=== PATIENT | female | born 1950 | race Caucasian/White ===

== ENCOUNTER → 2016-10-13 | Outpatient (CLI) | payer MEDICARE ==
--- NOTE | 2016-10-13 13:02 | US ---
EXAMINATION TYPE: US abdomen limited DATE OF EXAM: 10/13/2016 COMPARISON: NONE CLINICAL HISTORY: R94.5 Elevated liver enzymes. 1 episode of being sick for a week EXAM MEASUREMENTS: Liver Length: 15.8 cm Gallbladder Wall: 0.2 cm CBD: 0.6 cm Right Kidney: 9.8 x 4.3 x 4.0 cm Pancreas: wnl Liver: wnl Gallbladder: multiple stones within fundal portion of the GB, no wall thickening Evidence for sonographic Espinoza's sign: no CBD: wnl Right Kidney: wnl Shadowing mobile gallstones are evident. There is no pericholecystic fluid or abnormal gallbladder wa ll thickening. IMPRESSION: No worrisome intrahepatic mass or intrahepatic ductal dilatation is seen.
== END | disposition home or self-care (01) ==
LOC: RADUSWWP 12:25
PROVIDERS: ATTEND Family Medicine
DX: R94.5 Abnormal results of liver function studies (principal)
CPT/HCPCS: 76705

== ENCOUNTER 2016-11-13 06:25 | Day surgery (SDC) | payer MEDICARE ==
[2016-11-06 10:13] VITALS: BMI 18.8
[~2016-11-13 06:25] MED LIST: DEXAMETHASONE SOD PHOSPHATE 10 MG/ML 1 ML VIAL IV ONE; HEPARIN SODIUM,PORCINE 5,000 UNIT/ML 1 ML VIAL SQ ONE; LACTATED RINGERS 1,000 ML IV SCH; LIDOCAINE 1% 20 ML VIAL (10MG/ML) FOR IV START INTRADERMA PRN; ONDANSETRON 4 MG/2 ML VIAL IVP ONE; SCOPOLAMINE 1.5MG/72HR PATCH TRANSDERM ONE; ceFAZolin 2 GM in SODIUM CHLORIDE 0.9% 100 ML IVPB ONE; fentaNYL (PF) 50 MCG/ML 2 ML AMP IV PRN
[2016-11-13] MEDS ORDERED: BUPIVACAIN-EPI 0.25%-1:200,000 30 ML VIAL SQ ONE (07:24)
--- NOTE | 2016-11-13 08:07 | P.GSHP ---
History of Present Illness H&P Date: 11/13/16 Chief Complaint: Right upper quadrant pain This is a 65-year-old female referred from Dr. De La Garza. Patient presents today for laparoscopic cholecystectomy. She's had complaints of right quadrant pain. Her recent workup has found gallstones. Past Medical History Past Medical History: Hyperlipidemia, Hypertension, Thyroid Disorder Additional Past Medical History / Comment(s): GALLBLADDER DISORDER History of Any Multi-Drug Resistant Organisms: None Reported Past Surgical History: Section, Hysterectomy, Tonsillectomy Additional Past Surgical History / Comment(s): COLONOSCOPY Past Anesthesia/Blood Transfusion Reactions: Postoperative Nausea & Vomiting ( PONV) Smoking Status: Never smoker - Past Family History Mother Family Medical History: No Reported History Medications and Allergies Home Medications Medication Instructions Recorded Confirmed Type Acetaminophen Tab [Tylenol Tab] 500 mg PO BID PRN 11/06/16 11/13/16 History Atenolol [Tenormin] 50 mg PO DAILY 11/06/16 11/13/16 History Levothyroxine Sodium [Levoxyl] 88 mcg PO DAILY 11/06/16 11/13/16 History Allergies Allergy/AdvReac Type Severity Reaction Status Date / Time hydrocodone [From Vicodin] Allergy Rash/Hives Verified 11/13/16 06:37 Surgical - Exam Vital Signs Temp Pulse Resp BP Pulse Ox 97 F L 54 L 16 170/100 97 11/13/16 07:00 11/13/16 07:00 11/13/16 07:00 11/13/16 07:00 11/13/16 07:00 - General well developed, no distress - Eyes PERRL - ENT normal pinna - Neck no masses - Respiratory normal expansion - Cardiovascular Rhythm: regular - Abdomen Abdomen: soft, non tender Assessment and Plan Plan: Chronic cholecystitis Cholelithiasis We will perform laparoscopic cholecystectomy
[2016-11-13] MEDS ORDERED: MIDAZOLAM 2 MG/2 ML VIAL ONE (08:10)
[2016-11-13] MEDS ORDERED: KETOROLAC 30 MG/ML 1 ML VIAL ONE (08:10)
[2016-11-13] MEDS ORDERED: ROCURONIUM BROMIDE 10 MG/ML 10 ML VIAL IV ONE (08:10)
[2016-11-13] MEDS ORDERED: NEOSTIGMINE 1 MG/ML 10 ML VIAL ONE (08:10)
[2016-11-13] MEDS ORDERED: ePHEDrine 50 MG/ML 1 ML AMP ONE (08:10)
[2016-11-13] MEDS ORDERED: LIDOCAINE 1% INJ 10MG/ML (20 ML MDV) ONE (08:10)
[2016-11-13] MEDS ORDERED: fentaNYL (PF) 50 MCG/ML 2 ML AMP ONE (08:10)
[2016-11-13] MEDS ORDERED: PROPOFOL 10 MG/ML 20 ML VIAL IV ONE (08:10)
[2016-11-13] MEDS ORDERED: SUCCINYLCHOLINE CHLORIDE 100 MG/5 ML SYR IV ONE (08:10)
[2016-11-13] MEDS ORDERED: GLYCOPYRROLATE 0.2 MG/ML 2 ML VIAL ONE (08:10)
--- NOTE | 2016-11-13 08:46 | P.OP ---
Date of Procedure: 11/13/16 Preoperative Diagnosis: Cholecystitis Postoperative Diagnosis: Cholecystitis Procedure(s) Performed: Laparoscopic cholecystectomy Implants: Anesthesia: JEFF Surgeon: Jayesh Lazaro Estimated Blood Loss (ml): 5 Pathology: other (gall bladderg) Condition: stable Disposition: PACU Indications for Procedure: Operative Findings: Description of Procedure: The patient was placed on the operating table. The patient received a general endotracheal tube anesthesia. The patients abdomen was prepped and draped in the usual sterile fashion. Through an infraumbilical stab incision, the fascia of the anterior abdominal wall was grasped with a pair of Kochers and then the Veress needle was placed in the peritoneal cavity. Position of the Veress needle was confirmed with positive drop test. The abdomen was then insufflated. After adequate insufflation, the 10 mm trocar was placed in the peritoneal cavity. Following this the laparoscope was placed in the peritoneal cavity. The patient was placed in the head-up, right side up position and then a 5 mm trocar was placed in the right lateral and right subcostal position under direct visualization. A 8 mm trocar was placed in the epigastric position. The gallbladder was grasped in the fundus and infundibulum. Traction on the gallbladder was placed in the lateral and the cephalad positions. The triangle of Calot was visualized.. The cystic duct was bluntly dissected until the union of the cystic duct and common bile duct was seen. The cystic duct was then divided and sealed with the Harmonic scissors. A PDS Endoloop was then placed throughout the cystic duct stump. The cystic artery divided and sealed with the Harmonic scissors. The gallbladder was then removed from the liver bed using Harmonic scissors. The gallbladder was then extracted through the epigastric port site. Operative field was checked for any bleeding spots and Harmonic scissors was used to coagulate the liver bed. The abdomen was irrigated. The trocars were removed. The skin was closed using interrupted 3-0 Vicryl suture. Dermabond dressing were applied. The patient tolerated the procedure well.
[2016-11-13 08:57] VITALS: TEMP 97.3
[2016-11-13 09:34] VITALS: RESP 16
[2016-11-13] MEDS ORDERED: Acetaminophen-Codeine 300-30mg TAB PO ONE (10:02)
[2016-11-13 11:17] VITALS: BP 151/67; PULSE 54
== END 2016-11-13 11:24 | disposition home or self-care (01) ==
LOC: OR 06:25
PROVIDERS: ATTEND Surgery
DX: K80.10 Calculus of gallbladder with chronic cholecystitis without obstruction (principal); K82.8 Other specified diseases of gallbladder; I10 Essential (primary) hypertension; E07.9 Disorder of thyroid, unspecified; Z79.899 Other long term (current) drug therapy; Z88.5 Allergy status to narcotic agent
CPT/HCPCS: 88304; 47562; J2250; J1644; J1100; J2710; J0690; J2405; J2001; J3010; J1885; J0330; J2704

== ENCOUNTER → 2021-08-03 | Outpatient (CLI) | payer MEDICARE ==
--- NOTE | 2021-08-03 17:11 | BD ---
EXAMINATION TYPE: Axial Bone Density DATE OF EXAM: 08/03/2021 COMPARISON: NONE CLINICAL HISTORY: 70 year old Female. ICD-10 CODE: M81.0 AGE RELATED OSTEOPOROSIS Height: 67.5 Weight: 133.7 FRAX RISK QUESTIONS: Alcohol (3 or more units per day): no Family History (Parent hip fracture): no Glucocorticoids (More than 3mos): no (Ex: prednisone, prednisolone, methylprednisolone, dexamethasone, and hydrocortisone). History of Fracture in Adulthood: no Secondary Osteoporosis: 1. Type 1 Diabetes: no 2. Hyperthyroidism: no 3. Menopause before 45: no 4. Malnutrition: no 5. Chronic liver disease: no Rheumatoid Arthritis: no Current Tobacco Use: no RISK FACTORS HISTORY OF: Surgery to Spine/Hip(right/left)/Wrist (right/left): no Family History of Osteoporosis: no Active: yes Diet low in dairy products/other sources of calcium: yes Postmenopausal woman: yes MEDICATIONS: Thyroid Medications: thyroid How Lon years Osteoporosis Medications: fosamax How Lon years Additional Medications: Additional History: EXAM MEASUREMENTS: Bone mineral densitometry was performed using the [employer]. Bone mineral density as measured about the Lumbar spine is: ----- L1-L4(G/cm2): 1.198 T Score Values are as follows: ----- L1: 0.1 ----- L2: 0.0 ----- L3: -0.2 ----- L4: 0.4 ----- L1-L4: 0.1 Bone mineral density has: decreased -7.9 % since study of: 03.27.2011 Bone mineral density about the R hip (g/cm2): 0.754 Bone mineral density about the L hip (g/cm2): 0.732 T Score values are as follows: -----R Neck: -2.0 -----L Neck: -2.2 -----R Total: -2.2 -----L Total: -2.3 Bone mineral density has: decreased -14.0 % since study of: 03.27.2011 FRAX%s: The graph provided illustrates a 12.3% chance for a major osteoporotic fx and a 3.2% chance f or the hips probability for fx in 10 years time. IMPRESSION: Osteopenia (T Score between -2.5 and -1). There is slightly increased risk of fracture and the patient may be considered for treatment. Re-Screen 2-5 years. NOTE: T-SCORE=SD OF THE YOUNG ADULT MEAN.
--- NOTE | 2021-08-05 10:47 | MM ---
Reason for exam: screening (asymptomatic). Last mammogram was performed 7 years and 11 months ago. History: Patient is postmenopausal. Cancelled Left US Needle Biopsy of the left breast, May 12, 2009. Took estrogen for 11 years beginning at age 48. Physical Findings: A clinical breast exam by your physician is recommended on an annual basis and results should be correlated with mammographic findings. MG Screening Mammo w CAD Bilateral CC and MLO view(s) were taken. Prior study comparison: August 26, 2013, bilateral MG diagnostic mammo w CAD [facility]. April 11, 2012, CAD bilateral diagnostic mammogram. October 11, 2011, right diagnostic mammogram w/CAD. March 27, 2011, CAD bilateral diagnostic mammogram. There are scattered fibroglandular densities. There is chronic nodularity bilaterally. Some fluctuating nodularity on the right. 6 month follow up recommended. ASSESSMENT: Probably benign, BI-RAD 3 RECOMMENDATION: Follow-up diagnostic mammogram of the right breast in 6 months.
== END | disposition home or self-care (01) ==
LOC: RADMAMWWP 13:07
PROVIDERS: ATTEND Family Medicine
DX: Z12.31 Encounter for screening mammogram for malignant neoplasm of breast (principal); M85.89 Other specified disorders of bone density and structure, multiple sites; Z78.0 Asymptomatic menopausal state
CPT/HCPCS: 77067; 77080

== ENCOUNTER 2021-10-05 11:27 | Day surgery (SDC) | payer MEDICARE ==
[2021-10-04 13:22] VITALS: BMI 19.5
[~2021-10-05 11:27] MED LIST changes: -DEXAMETHASONE SOD PHOSPHATE 10 MG/ML 1 ML VIAL IV ONE; -HEPARIN SODIUM,PORCINE 5,000 UNIT/ML 1 ML VIAL SQ ONE; +LIDOCAINE 1% (10MG/ML) FOR IV START INTRADERMA PRN; -LIDOCAINE 1% 20 ML VIAL (10MG/ML) FOR IV START INTRADERMA PRN; -ONDANSETRON 4 MG/2 ML VIAL IVP ONE; -SCOPOLAMINE 1.5MG/72HR PATCH TRANSDERM ONE; -ceFAZolin 2 GM in SODIUM CHLORIDE 0.9% 100 ML IVPB ONE; -fentaNYL (PF) 50 MCG/ML 2 ML AMP IV PRN
[2021-10-05 11:58] VITALS: TEMP 98.2
[2021-10-05] MEDS ORDERED: LIDOCAINE 2% INJ 20 MG/ML (2 ML VIAL) ONE (13:04)
[2021-10-05] MEDS ORDERED: PROPOFOL 10 MG/ML 20 ML VIAL IV ONE (13:04)
--- NOTE | 2021-10-05 13:25 | P.PCN ---
Date of Procedure: 10/05/21 Procedure(s) Performed: BRIEF HISTORY: Patient is a 70-year-old pleasant female scheduled for an elective colonoscopy as a part of screening for colorectal neoplasia. Her last colonoscopy was 11 years ago. PROCEDURE PERFORMED: Colonoscopy. PREOPERATIVE DIAGNOSIS: Screening For colon cancer. IV sedation per Anesthesia. PROCEDURE: After informed consent was obtained, the patient, was brought into the endoscopy unit. IV sedation was administered by Anesthesia under continuous monitoring. Digital rectal examination was normal. Initially the Olympus CF-160 flexible video colonoscope was then inserted in the rectum, gradually advanced into the cecum without any difficulty. Careful examination was performed as the scope was gradually being withdrawn. Ileocecal valve and the appendiceal orifice were visualized and appeared normal. Prep was excellent. Mucosa of the cecum, ascending colon, transverse colon, descending colon, sigmoid colon, and rectum appeared normal. Moderate sigmoid diverticulosis Retroflexion was performed in the rectum and no lesions were seen. The patient tolerated the procedure well. IMPRESSION: Normal-appearing colon from rectum to cecum with no evidence of colorectal neoplasia . Sigmoid diverticulosis RECOMMENDATIONS: Findings of this examination were discussed with the patient as well as her family. She was advised to have a repeat screening colonoscopy in 10 years..
[2021-10-05 13:33] VITALS: RESP 16
[2021-10-05 13:46] VITALS: BP 129/79; PULSE 55
== END 2021-10-05 14:07 | disposition home or self-care (01) ==
LOC: ORWHC2ENDO 11:27
PROVIDERS: ATTEND Internal Medicine Gastroenterology
DX: Z12.11 Encounter for screening for malignant neoplasm of colon (principal); K57.30 Diverticulosis of large intestine without perforation or abscess without bleeding; Z88.5 Allergy status to narcotic agent; E03.9 Hypothyroidism, unspecified; I10 Essential (primary) hypertension; E78.5 Hyperlipidemia, unspecified; Z79.899 Other long term (current) drug therapy; Z90.49 Acquired absence of other specified parts of digestive tract; Z90.710 Acquired absence of both cervix and uterus
CPT/HCPCS: J2704; J2001; G0121

== ENCOUNTER → 2022-04-05 | Outpatient (CLI) | payer MEDICARE ==
--- NOTE | 2022-04-05 14:58 | MM ---
Reason for Exam: Follow-up at short interval from prior study. Last screening mammogram was performed 8 month(s) ago. Patient History: Menarche at age 9. First Full-Term at age 19. Right ovary removed at age 43. Hysterectomy at age 43. Postmenopausal. Estrogen for 11 years from age 48 until age 59. 05/12/2009, Cancelled Left US Needle Biopsy on the left side. Risk Values: Bridget 5 year model risk: 1.7%. NCI Lifetime model risk: 4.3%. Prior Study Comparison: 04/11/2012 Bilateral Diagnostic Mammogram, [facility]. 08/26/2013 Bilateral Diagnostic Mammogram, [facility]. 08/03/2021 Bilateral Screening Mammogram, [facility]. Tissue Density: Right: There are scattered fibroglandular densities. Findings: Analyzed By CAD. Pattern appears stable. Benign focal asymmetry in the upper outer right breast. Stable nodular densities in the lower inner right breast. Benign scattered calcifications are present. No suspicious groups of microcalcifications, spiculated or lobular masses, architectural distortion or other secondary signs of malignancy are mammographically apparent. Overall Assessment: Benign, BI-RAD 2 Management: Screening Mammogram of both breasts in 6 months. A negative mammogram report should not preclude additional follow up of suspicious palpable abnormalities. Patient should continue monthly self breast exam. A clinical breast exam by your physician is recommended on an annual basis and results should be correlated with mammographic findings. Electronically signed and approved by: Frank Hodgson D.O. Radiologis
== END | disposition home or self-care (01) ==
LOC: RADMAMWWP 14:23
PROVIDERS: ATTEND Family Medicine
DX: R92.8 Other abnormal and inconclusive findings on diagnostic imaging of breast (principal); Z78.0 Asymptomatic menopausal state; Z90.721 Acquired absence of ovaries, unilateral
CPT/HCPCS: 77065; G0279; 77061

== ENCOUNTER → 2022-11-21 | Outpatient (CLI) | payer MEDICARE ==
--- NOTE | 2022-11-22 07:51 | MM ---
Reason for Exam: Screening (asymptomatic). Last mammogram was performed 1 year(s) and 4 month(s) ago. Patient History: Menarche at age 9. First Full-Term at age 19. Right ovary removed at age 43. Hysterectomy at age 43. Postmenopausal. Estrogen for 11 years from age 48 until age 59. 05/12/2009, Cancelled Left US Needle Biopsy on the left side. Risk Values: Bridget 5 year model risk: 1.7%. NCI Lifetime model risk: 4.3%. Prior Study Comparison: 08/26/2013 Bilateral Diagnostic Mammogram, [facility]. 08/03/2021 Bilateral Screening Mammogram, [facility]. 04/05/2022 Right MG 3D diag mammo w/cad RT, [facility]. Tissue Density: The breast tissue is heterogeneously dense. This may lower the sensitivity of mammography. Findings: Analyzed By CAD. There is no suspicious group of microcalcifications or new suspicious mass in either breast. Benign-appearing round calcifications within both breasts. Stable chronic nodularity within both breasts. Overall Assessment: Benign, BI-RAD 2 Management: Screening Mammogram of both breasts in 1 year. A clinical breast exam by your physician is recommended on an annual basis and results should be correlated with mammographic findings. Note on Bridget scores and lifetime risk: 1. A Bridget score greater than 3% is considered moderate risk. If this is the case, consider specialist referral to assess eligibility for a risk reducing agent. If overall lifetime risk for the development of breast cancer is 20% or higher, the patient may qualify for future screening with alternating mammogram and breast MRI. Electronically signed and approved by: Jose A Padron D.O.
== END | disposition home or self-care (01) ==
LOC: RADMAMWWP 15:04
PROVIDERS: ATTEND Family Medicine
DX: Z12.31 Encounter for screening mammogram for malignant neoplasm of breast (principal); Z78.0 Asymptomatic menopausal state
CPT/HCPCS: 77063; 77067

== ENCOUNTER 2024-04-21 11:45 | Inpatient (IN) | payer MEDICARE ==
--- NOTE | 2024-04-21 12:21 | ED ---
Fall HPI - General Chief Complaint: Fall Stated Complaint: Fall-L ankle injury Time Seen by Provider: 04/21/24 11:52 Source: patient, EMS Mode of arrival: EMS - History of Present Illness Initial Comments: 73-year-old female with history of hypertension presenting to the ER with chief complaint of fall with left ankle injury. Patient states about an hour ago she was walking in her living room and started to feel lightheaded and syncopized, falling backwards onto the carpet. She injured her left ankle during the fall. witnessed the fall and states she did not hit her head. Denies blood thinners. Denies any other injuries from the fall. Denies chest pain, shor tness of breath, headache, abdominal pain. States she has been ill with a viral upper respiratory infection the past couple of days and believes this is why she fell. Also reports she has not eaten as much as usual due to the illness. Denies history of syncope. Denies history of heart issues. - Related Data Home Medications Medication Instructions Recorded Confirmed atenoloL [Tenormin] 50 mg PO DAILY 11/06/16 04/21/24 Atorvastatin [Lipitor] 40 mg PO DAILY 10/04/21 04/21/24 Levothyroxine Sodium [Synthroid] 88 mcg PO DAILY 10/05/21 04/21/24 Calcium(Unknown Dose) 1 tab PO DAILY 04/21/24 04/21/24 Fish Oil(Unknown Dose) 1 cap PO DAILY 04/21/24 04/21/24 Ibandronate Sodium [Boniva] 150 mg PO Q30D 04/21/24 04/21/24 Losartan [Cozaar] 25 mg PO DAILY 04/21/24 04/21/24 Vitamin C(Unknown Dose) 1 tab PO DAILY 04/21/24 04/21/24 Allergies Allergy/AdvReac Type Severity Reaction Status Date / Time hydrocodone [From Vicodin] Allergy Rash/Hives Verified 04/21/24 17:51 Review of Systems ROS Statement: Those systems with pertinent positive or pertinent negative responses have been documented in the HPI. ROS Other: All systems not noted in ROS Statement are negative. Past Medical History Past Medical History: Hyperlipidemia, Hypertension, Thyroid Disorder Additional Past Medical History / Comment(s): GALLBLADDER DISORDER History of Any Multi-Drug Resistant Organisms: None Reported Past Surgical History: Section, Cholecystectomy, Hysterectomy, Tonsillectomy Additional Past Surgical History / Comment(s): COLONOSCOPY. Past Anesthesia/Blood Transfusion Reactions: Postoperative Nausea & Vomiting (PONV) Past Psychological History: No Psychological Hx Reported Smoking Status: Never smoker Past Alcohol Use History: None Reported Past Drug Use History: None Reported - Past Family History Mother Family Medical History: No Reported History General Exam General appearance: alert, in no apparent distress Head exam: Present: atraumatic, normocephalic, normal inspection Eye exam: Present: normal appearance, PERRL, EOMI. Absent: scleral icterus, conjunctival injection, periorbital swelling ENT exam: Present: normal exam, mucous membranes moist Neck exam: Present: normal inspection. Absent: tenderness, meningismus, lymphadenopathy Respiratory exam: Present: normal lung sounds bilaterally. Absent: respiratory distress, wheezes, rales, rhonchi, stridor Cardiovascular Exam: Present: regular rate, normal rhythm, normal heart sounds. Absent: systolic murmur, diastolic murmur, rubs, gallop, clicks GI/Abdominal exam: Present: soft, normal bowel sounds. Absent: distended, tenderness, guarding, rebound, rigid Left Lower Leg exam: Present: normal inspection, full ROM. Absent: tenderness, swelling Ankle exam: Present: tenderness, swelling, deformity. Absent: normal inspection (Visible deformity medial left ankle with large amount of bruising), full ROM Foot/Toe exam: Present: normal inspection, full ROM. Absent: tenderness, swelling Neurovascular tendon exam: Present: no vascular compromise. Absent: pulse deficit, abnormal cap refill, sensory deficit Neurological exam: Present: alert, oriented X3 Psychiatric exam: Present: normal affect, normal mood Skin exam: Present: warm, dry, intact, normal color. Absent: rash Course Vital Signs 04/21/24 11:51 Temperature 98.1 F Pulse Rate 67 Respiratory 18 Rate Blood Pressure 137/76 O2 Sat by Pulse 95 Oximetry Procedures - Orthopedic Splinting/Casting Injury #1 Side: left Lower Extremity Injury Location: ankle Lower Extremity Immobilizer: posterior splint, stirrup splint Additional Comments: Neurovascularly intact status post splint Medical Decision Making - Medical Decision Making Was pt. sent in by a medical professional or institution (, PA, BIOMECHANICAL ENGINEER, urgent care, hospital, or group home...) When possible be specific @ -[No] Did you speak to anyone other than the patient for history (EMS, parent, family, police, friend...)? What history was obtained from this source @ -[No] Did you review nursing and triage notes (agree or disagree)? Why? @ -[I reviewed and agree with nursing and triage notes] Were old charts reviewed (outside hosp., previous admission, EMS record, old EKG, old radiological studies, urgent care reports/EKG's, group home records)? Report findings @ -[No old charts were reviewed] Differential Diagnosis (chest pain, altered mental status, abdominal pain women, abdominal pain men, vaginal bleeding, weakness, fever, dyspnea, syncope, hea dache, dizziness, GI bleed, back pain, seizure, CVA, palpatations, mental health, musculoskeletal)? @ -Differential Syncope: Valvular disease, hypertrophic cardiomyopathy, pulmonary embolism, tamponade, tachycardia, bradycardia, LA, hypovolemia, hemorrhage, dissection, anemia, intracranial hemorrhage, seizure, hypoglycemia, carbon monoxide poisoning, this is not meant to be an all-inclusive list. Differential Musculoskeletal Muscular strain, contusion, ligament sprain, fracture, arthritis, septic arthritis, bursitis, cellulitis, muscle spasm, nerve compression, DVT, arterial occlusion, herpes zoster, electrolyte abnormality, tumor.... This is not meant to be in all inclusive list EKG interpreted by me (3pts min.). @ -[As above] X-rays interpreted by me (1pt min.). @ -X-ray left ankle reveals unstable trimalleoli ankle fractures, displacement of medial malleolus fragment by 7 mm and displacement of oblique distal fibular fragment by 4 mm, chest x-ray, borderline heart size, mild hyperinflation may relate to depth of inspiration or underlying emphysema, no acute cardiopulmonary process CT interpreted by me (1pt min.). @ -CT angio chest no evidence of PE, 6 mm spiculated nodule of right upper lobe U/S interpreted by me (1pt. min.). @ -[None done] What testing was considered but not performed or refused? (CT, X-rays, U/S, labs)? Why? @ -[None] What meds were considered but not given or refused? Why? @ -[None] Did you discuss the management of the patient with other professionals (professionals i.e. , PA, BIOMECHANICAL ENGINEER, lab, RT, psych nurse, nephrology social worker, service greeter, teacher, telecommunications officer, caser up)? Give summary @ -I spoke with Dr. Law who recommends admission for surgical fixation tonight, requesting consultation to [facility] for preop clearance. Dr. Francois agreeable to plan Was smoking cessation discussed for >3mins.? @ -[No] Was critical care preformed (if so, how long)? @ -[No] Were there social determinants of health that impacted care today? How? (Homelessness, low income, unemployed, alcoholism, drug addiction, transportation, low edu. Level, literacy, decrease access to med. care, long-term, rehab)? @ -[No] Was there de-escalation of care discussed even if they declined (Discuss DNR or withdrawal of care, Hospice)? DNR status @ -[No] What co-morbidities impacted this encounter? (DM, HTN, Smoking, COPD, CAD, Cancer, CVA, ARF, Chemo, Hep., AIDS, mental health diagnosis, sleep apnea, morbid obesity)? @ -[None] Was patient admitted / discharged? Hospital course, mention meds given and route, prescriptions, significant lab abnormalities, going to OR and other p ertinent info. @ -Admitted. This is a 73-year-old female presenting for syncopal episode with left ankle injury. Patient admits lightheadedness prior to the fall. Denies chest pain, shortness of breath. X-ray left ankle reveals trimalleolar fracture with displacement of medial malleolus fragment 7 mm and displacement of oblique distal fibular fragment 4 mm. Patient is RSV positive. Lab work remarkable for leukocytosis at 11.2 and elevated D-dimer at 9.76. CT chest angio obtained which is negative for PE. Results discussed with patient. Patient was placed in posterior and stirrup orthopedic splint. I spoke with Dr. Law who recommends admission for surgical fixation tonight as patient has been n.p.o. for the past 2 days. He is requesting consultation to [facility] for preop clearan ce. Dr. Francois agreeable to this plan. Case was discussed with my ED attending Dr. Rice Undiagnosed new problem with uncertain prognosis? @ -[No] Drug Therapy requiring intensive monitoring for toxicity (Heparin, Nitro, Insulin, Cardizem)? @ -[No] Were any procedures done? @ -Orthopedic posterior and stirrup splint Diagnosis/symptom? @ -Left ankle fracture Acute, or Chronic, or Acute on Chronic? @ -Acute Uncomplicated (without systemic symptoms) or Complicated (systemic symptoms)? @ -Complicated Side effects of treatment? @ -[No] Exacerbation, Progression, or Severe Exacerbation? @ -[No] Poses a threat to life or bodily function? How? (Chest pain, USA, LA, pneumonia, PE, COPD, DKA, ARF, appy, cholecystitis, CVA, Diverticulitis, Homicidal, Suicidal, threat to staff... and all critical care pts) @ -Possibly - Lab Data Result diagrams: 04/21/24 12:52 04/21/24 12:52 Lab Results 04/21/24 04/21/24 04/21/24 Range/Units 12:52 12:52 12:52 WBC 11.2 H (3.8-10.6) k/uL RBC 3.99 (3.80-5.40) m/uL Hgb 12.3 (11.4-16.0) gm/dL Hct 38.0 (34.0-46.0) % MCV 95.1 (80.0-100.0) fL MCH 30.8 (25.0-35.0) pg MCHC 32.3 (31.0-37.0) g/dL RDW 11.9 (11.5-15.5) % Plt Count 204 (150-450) k/uL MPV 7.0 Neutrophils % 91 % Lymphocytes % 5 % Monocytes % 3 % Eosinophils % 0 % Basophils % 0 % Neutrophils # 10.2 H (1.3-7.7) k/uL Lymphocytes # 0.6 L (1.0-4.8) k/uL Monocytes # 0.4 (0-1.0) k/uL Eosinophils # 0.0 (0-0.7) k/uL Basophils # 0.0 (0-0.2) k/uL PT (10.0-12.5) sec INR (<1.2) APTT (22.0-30.0) sec D-Dimer 9.76 H (<0.60) mg/L FEU Sodium 133 L (137-145) mmol/L Potassium 3.7 (3.5-5.1) mmol/L Chloride 97 L (98-107) mmol/L Carbon Dioxide 29 (22-30) mmol/L Anion Gap 7 mmol/L BUN 15 (7-17) mg/dL Creatinine 0.61 (0.52-1.04) mg/dL Est GFR (CKD-EPI)AfAm >90 (>60 ml/min/1.73 sqM) Est GFR (CKD-EPI)NonAf 89 (>60 ml/min/1.73 sqM) Glucose 101 H (74-99) mg/dL Plasma Lactic Acid Yefri (0.7-2.0) mmol/L Calcium 8.9 (8.4-10.2) mg/dL Total Bilirubin 1.1 (0.2-1.3) mg/dL AST 39 H (14-36) U/L ALT 39 H (4-34) U/L Alkaline Phosphatase 72 (38-126) U/L Troponin I (0.000-0.034) ng/mL Total Protein 7.0 (6.3-8.2) g/dL Albumin 4.2 (3.5-5.0) g/dL Influenza Type A (PCR) (Not Detectd) Influenza Type B (PCR) (Not Detectd) RSV (PCR) (Not Detectd) SARS-CoV-2 (PCR) (Not Detectd) 04/21/24 04/21/24 04/21/24 Range/Units 12:52 12:52 12:52 WBC (3.8-10.6) k/uL RBC (3.80-5.40) m/uL Hgb (11.4-16.0) gm/dL Hct (34.0-46.0) % MCV (80.0-100.0) fL MCH (25.0-35.0) pg MCHC (31.0-37.0) g/dL RDW (11.5-15.5) % Plt Count (150-450) k/uL MPV Neutrophils % % Lymphocytes % % Monocytes % % Eosinophils % % Basophils % % Neutrophils # (1.3-7.7) k/uL Lymphocytes # (1.0-4.8) k/uL Monocytes # (0-1.0) k/uL Eosinophils # (0-0.7) k/uL Basophils # (0-0.2) k/uL PT (10.0-12.5) sec INR (<1.2) APTT (22.0-30.0) sec D-Dimer (<0.60) mg/L FEU Sodium (137-145) mmol/L Potassium (3.5-5.1) mmol/L Chloride (98-107) mmol/L Carbon Dioxide (22-30) mmol/L Anion Gap mmol/L BUN (7-17) mg/dL Creatinine (0.52-1.04) mg/dL Est GFR (CKD-EPI)AfAm (>60 ml/min/1.73 sqM) Est GFR (CKD-EPI)NonAf (>60 ml/min/1.73 sqM) Glucose (74-99) mg/dL Plasma Lactic Acid Yefri 1.2 (0.7-2.0) mmol/L Calcium (8.4-10.2) mg/dL Total Bilirubin (0.2-1.3) mg/dL AST (14-36) U/L ALT (4-34) U/L Alkaline Phosphatase (38-126) U/L Troponin I <0.012 (0.000-0.034) ng/mL Total Protein (6.3-8.2) g/dL Albumin (3.5-5.0) g/dL Influenza Type A (PCR) Not Detected (Not Detectd) Influenza Type B (PCR) Not Detected (Not Detectd) RSV (PCR) Detected A (Not Detectd) SARS-CoV-2 (PCR) Not Detected (Not Detectd) 04/21/24 Range/Units 16:45 WBC (3.8-10.6) k/uL RBC (3.80-5.40) m/uL Hgb (11.4-16.0) gm/dL Hct (34.0-46.0) % MCV (80.0-100.0) fL MCH (25.0-35.0) pg MCHC (31.0-37.0) g/dL RDW (11.5-15.5) % Plt Count (150-450) k/uL MPV Neutrophils % % Lymphocytes % % Monocytes % % Eosinophils % % Basophils % % Neutrophils # (1.3-7.7) k/uL Lymphocytes # (1.0-4.8) k/uL Monocytes # (0-1.0) k/uL Eosinophils # (0-0.7) k/uL Basophils # (0-0.2) k/uL PT 11.1 (10.0-12.5) sec INR 1.0 (<1.2) APTT 23.2 (22.0-30.0) sec D-Dimer (<0.60) mg/L FEU Sodium (137-145) mmol/L Potassium (3.5-5.1) mmol/L Chloride (98-107) mmol/L Carbon Dioxide (22-30) mmol/L Anion Gap mmol/L BUN (7-17) mg/dL Creatinine (0.52-1.04) mg/dL Est GFR (CKD-EPI)AfAm (>60 ml/min/1.73 sqM) Est GFR (CKD-EPI)NonAf (>60 ml/min/1.73 sqM) Glucose (74-99) mg/dL Plasma Lactic Acid Yefri (0.7-2.0) mmol/L Calcium (8.4-10.2) mg/dL Total Bilirubin (0.2-1.3) mg/dL AST (14-36) U/L ALT (4-34) U/L Alkaline Phosphatase (38-126) U/L Troponin I (0.000-0.034) ng/mL Total Protein (6.3-8.2) g/dL Albumin (3.5-5.0) g/dL Influenza Type A (PCR) (Not Detectd) Influenza Type B (PCR) (Not Detectd) RSV (PCR) (Not Detectd) SARS-CoV-2 (PCR) (Not Detectd) - EKG Data -: EKG Interpreted by [facility] EKG Comments: EKG reveals normal sinus rhythm ST changes. Ventricular rate 70 bpm, MT interval 146, QRS duration 89, QT/QTc 401/423 Disposition Clinical Impression: Closed left ankle fracture Disposition: ADMITTED IP TO THIS [facility] Time of Disposition: 18:56
[2024-04-21 13:02] LABS: Basophils % (A) 0 %; Eosinophils % (A) 0 %; HGB 12.3 gm/dL (11.4-16.0); Lymphocytes # (A) 0.6 k/uL (1.0-4.8); Lymphocytes % (A) 5 %; MCH 30.8 pg (25.0-35.0); MCHC 32.3 g/dL (31.0-37.0); MCV 95.1 fL (80.0-100.0); Monocytes # (A) 0.4 k/uL (0-1.0); Monocytes % (A) 3 %; Neutrophils # (A) 10.2 k/uL (1.3-7.7); Neutrophils % (A) 91 %; Platelet Count 204 k/uL (150-450); RBC 3.99 m/uL (3.80-5.40); RDW 11.9 % (11.5-15.5); WBC 11.2 k/uL (3.8-10.6)
[2024-04-21 13:15] LABS: ALT 39 U/L (4-34); AST 39 U/L (14-36); African American GFR (CKD) >90 (>60 ml/min/1.73 sqM); Albumin 4.2 g/dL (3.5-5.0); Alkaline Phosphatase 72 U/L (38-126); Anion Gap 7 mmol/L; Blood Urea Nitrogen 15 mg/dL (7-17); Calcium 8.9 mg/dL (8.4-10.2); Carbon Dioxide 29 mmol/L (22-30); Chloride 97 mmol/L (98-107); Glucose 101 mg/dL (74-99); Non-African American GFR(CKD) 89 (>60 ml/min/1.73 sqM); Potassium 3.7 mmol/L (3.5-5.1); Sodium 133 mmol/L (137-145); Total Bilirubin 1.1 mg/dL (0.2-1.3)
--- NOTE | 2024-04-21 13:20 | XR ---
EXAMINATION TYPE: XR chest 2V, XR ankle complete 3 views LT DATE OF EXAM: 04/21/2024 12:44 PM COMPARISON: None CLINICAL INDICATION: Female, 73 years old with history of cough, syncope, pain after fall FINDINGS: Chest: The heart is borderline in size. Aorta and pulmonary vasculature within normal limits. Mild hyperinfl ation without consolidation or pleural effusion. Left ankle: There is some irregularity along the posterior malleolus on the lateral view suggesting a nondisplace d fracture. Oblique fracture distal fibula with posterior displacement of 4 mm. Additional small frac ture from the inferior tip of the lateral malleolus. There is a transverse fracture through the medi al malleolus with 7 mm of lateral displacement. Talar dome appears intact. Smooth delineation to the Achilles tendon. IMPRESSION: 1. Chest: Borderline heart size. Mild hyperinflation may relate to depth of inspiration or underlying emphysema. Otherwise, no acute cardiopulmonary process. 2. Left ankle: Unstable trimalleolar ankle fractures. Displacement of the medial malleolar fragment b y 7 mm and displacement of the oblique distal fibular fragment by 4 mm. [facility], , 04/21/2024 1:17 PM
--- NOTE | 2024-04-21 14:48 | CT ---
EXAMINATION TYPE: CT angio chest DATE OF EXAM: 04/21/2024 COMPARISON: None CLINICAL INDICATION: Female, 73 years old with history of syncope, elevated D-dimer; PHH, SYNCOPE TECHNIQUE: CTA scan of the thorax is performed with IV Contrast, patient injected with 60 mL of Isovue 300, pulm onary embolism protocol. MIP images are created and reviewed. The 3-D post processing was performed CT DLP: 178.[address] CTDI: mGy Automated exposure control for dose reduction was used. FINDINGS: There is a 6 mm spiculated nodule in the right upper lobe. There is no prior study for comparison and therefore malignancy is not excluded. A 3 month follow-up CT thorax is recommended to confirm stabil ity. There is no airspace consolidation or abnormal interstitial density. There is no pleural effusion or pneumothorax. There is no thoracic aortic aneurysm. There are no filling defects within the pulmonary arterial circulation to suggest pulmonary embolism. The osseous structures are intact. IMPRESSION: 1. No evidence of pulmonary embolism. 2. 6 mm spiculated nodule right upper lobe as described above. 3 month follow-up CT thorax is recomme nded to rule out malignancy and confirm stability. 3. No acute cardiopulmonary disease. [facility], , 04/21/2024 2:45 PM
[2024-04-21] MEDS: HYDROmorphone 0.5 MG/0.5 ML SYRINGE IVP STA (15:13)
[2024-04-21] MEDS: SODIUM CHLORIDE 0.9% 500 ML 500 ML IV STA (16:00)
[2024-04-21] MEDS ORDERED: HYDROmorphone 1 MG/ML 1 ML SYRINGE IVP PRN (16:28)
[2024-04-21] MEDS ORDERED: NALOXONE 0.4 MG/ML 1 ML VIAL IV PRN ×2 (16:28→20:11)
--- NOTE | 2024-04-21 17:04 | P.CONS ---
History of Present Illness - Reason for Consult Consult date: 04/21/24 - Chief Complaint preoperative eval - History of Present Illness 73-year-old woman with medical history of hypothyroidism, hyperlipidemia, gentian presented for evaluation of left ankle fracture. Patient states that she has been eating very poorly over the last few days and not hydrating very we ll as a consequence of having a viral illness in which she felt like she had a head cold, congestion, cough from postnasal drip with no mucus production. As a consequence, today she felt dizzy and upon ambulating to the bathroom she had a fall in which she twisted her ankle and broke it, prompting her evaluation in the emergency room. Normally, patient does all of her own house chores, is able to ambulate without any anginal type pain. Her METS estimation is greater than 4. She has no history of heart disease or stroke. She has had no or reactions to anesthesia. Pt is afebrile, 137/76, HR 67, 95% on room air. WBC is 11.2. Na is 133, Cl is 97. LFTs show elevation of AST/ALT to 39/39. Pt tested positive for RSV. Ankle x-ray shows unstable trimalleolar fracture and displacement of the medial malleoli fragment. Chest x-ray shows borderline heart size, mild hyperinflation. CT angiography shows 6 mm spiculated nodule in the right upper lobe, which requires 3-month follow-up. EKG shows normal sinus rhythm, left axis deviation, no concerning ischemic changes. All Systems reviewed and pertinent positives and negatives noted in HPI, all other symptoms are negative Gen: In NAD, non-toxic HEENT: normocephalic, atraumatic, hearing acuity is intant, mucous membranes moist CVS: perfusing all extremities well, no pitting edema, regular rate and rhythm without murmurs Respiratory: symmetric chest expansion, no accessory muscle use, chest sounds clear GI: soft, NTTP, ND, : no suprapubic tenderness, no CVA tenderness MSK/Derm: no rashes, cyanosis, displaced traumatic and bruised left ankle Neuro: CN II-XII intact, no motor weakness, Psych: cooperative, euthymic mood, judgment and insight is intact Labs and imaging as above Assessment/plan: Preoperative Evaluation -Pt represents low risk for intermediate risk procedure -okay to proceed to surgery without further need of testing RSV infection -supportive care Spiculated Nodule -referral to PCP for repeat CT scan outpatient Hypothyroidism HLD HTN -resume home medications Pt is full code Past Medical History Past Medical History: Hyperlipidemia, Hypertension, Thyroid Disorder Additional Past Medical History / Comment(s): GALLBLADDER DISORDER History of Any Multi-Drug Resistant Organisms: None Reported Past Surgical History: Section, Cholecystectomy, Hysterectomy, Tonsille ctomy Additional Past Surgical History / Comment(s): COLONOSCOPY. Past Anesthesia/Blood Transfusion Reactions: Postoperative Nausea & Vomiting (PONV) Past Psychological History: No Psychological Hx Reported Smoking Status: Never smoker Past Alcohol Use History: None Reported Past Drug Use History: None Reported - Past Family History Mother Family Medical History: No Reported History Medications and Allergies Home Medications Medication Instructions Recorded Confirmed Type atenoloL [Tenormin] 50 mg PO QAM 11/06/16 10/05/21 History Atorvastatin [Lipitor] 40 mg PO HS 10/04/21 10/05/21 History Levothyroxine Sodium [Synthroid] 88 mcg PO DAILY 10/05/21 10/05/21 History Allergies Allergy/AdvReac Type Severity Reaction Status Date / Time hydrocodone [From Vicodin] Allergy Rash/Hives Verified 04/21/24 11:55 Physical Exam Osteopathic Statement: *. No significant issues noted on an osteopathic structural exam other than those noted in the History and Physical/Consult. Vitals: Vital Signs Temp Pulse Resp BP Pulse Ox 04/21/24 11:51 98.1 F 67 18 137/76 95 Intake and Output 04/21/24 04/21/24 04/21/24 06:59 14:59 22:59 Other: Weight 58.967 kg Results CBC & Chem 7: 04/21/24 12:52 04/21/24 12:52 Labs: Abnormal Lab Results - Last 24 Hours (Table) 04/21/24 04/21/24 04/21/24 Range/Units 12:52 12:52 12:52 WBC 11.2 H (3.8-10.6) k/uL Neutrophils # 10.2 H (1.3-7.7) k/uL Lymphocytes # 0.6 L (1.0-4.8) k/uL D-Dimer 9.76 H (<0.60) mg/L FEU Sodium 133 L (137-145) mmol/L Chloride 97 L (98-107) mmol/L Glucose 101 H (74-99) mg/dL AST 39 H (14-36) U/L ALT 39 H (4-34) U/L RSV (PCR) (Not Detectd) 04/21/24 Range/Units 12:52 WBC (3.8-10.6) k/uL Neutrophils # (1.3-7.7) k/uL Lymphocytes # (1.0-4.8) k/uL D-Dimer (<0.60) mg/L FEU Sodium (137-145) mmol/L Chloride (98-107) mmol/L Glucose (74-99) mg/dL AST (14-36) U/L ALT (4-34) U/L RSV (PCR) Detected A (Not Detectd)
[2024-04-21 17:33] LABS: Partial Thromboplastin Time 23.2 sec (22.0-30.0); Prothrombin Time 11.1 sec (10.0-12.5)
--- NOTE | 2024-04-21 18:01 | P.HPOR ---
History of Present Illness H&P Date: 04/21/24 the patient is a very pleasant 73-year-old female who presents with a left ankle fracture. According to the patient and her family at bedside she hasn't eaten much in the last several days and became lightheaded. She lost her balance and fell injuring her left ankle. She had obvious deformity and was brought to the emergency department. X-rays showed a bimalleolar ankle fracture. She was admi tted under my care. At the time of my evaluation she is complaining of isolated left ankle pain. She is otherwise relatively healthy and ambulates in the community at baseline. Past Medical History Past Medical History: Hyperlipidemia, Hypertension, Thyroid Disorder Additional Past Medical History / Comment(s): GALLBLADDER DISORDER History of Any Multi-Drug Resistant Organisms: None Reported Past Surgical History: Section, Cholecystectomy, Hysterectomy, Tonsillectomy Additional Past Surgical History / Comment(s): COLONOSCOPY. Past Anesthesia/Blood Transfusion Reactions: Postoperative Nausea & Vomiting (PONV) Past Psychological History: No Psychological Hx Reported Smoking Status: Never smoker Past Alcohol Use History: None Reported Past Drug Use History: None Reported - Past Family History Mother Family Medical History: No Reported History Medications and Allergies Home Medications Medication Instructions Recorded Confirmed Type atenoloL [Tenormin] 50 mg PO DAILY 11/06/16 04/21/24 History Atorvastatin [Lipitor] 40 mg PO DAILY 10/04/21 04/21/24 History Levothyroxine Sodium [Synthroid] 88 mcg PO DAILY 10/05/21 04/21/24 History Calcium(Unknown Dose) 1 tab PO DAILY 04/21/24 04/21/24 History Fish Oil(Unknown Dose) 1 cap PO DAILY 04/21/24 04/21/24 History Ibandronate Sodium [Boniva] 150 mg PO Q30D 04/21/24 04/21/24 History Losartan [Cozaar] 25 mg PO DAILY 04/21/24 04/21/24 History Vitamin C(Unknown Dose) 1 tab PO DAILY 04/21/24 04/21/24 History Allergies Allergy/AdvReac Type Severity Reaction Status Date / Time hydrocodone [From Vicodin] Allergy Rash/Hives Verified 04/21/24 17:51 Physical Examination the patient is resting comfortably on a gurney. He is alert and able to answer questions. Her head is normocephalic and atraumatic. She demonstrates nonlabored breathing with symmetric chest expansion. Her abdomen is soft and nontender. A focused exam of the left lower extremity was conducted. On inspection there is a splint in place. The ankle is obviously deformed. She is able to actively plantarflex and dorsiflex her ankle and her toes. Her toes are warm and well perfused with brisk capillary refill. Results x-rays of the left ankle show a displaced trimalleolar ankle fracture - Labs Labs: Abnormal Lab Results - Last 24 Hours (Table) 04/21/24 04/21/24 04/21/24 Range/Units 12:52 12:52 12:52 WBC 11.2 H (3.8-10.6) k/uL Neutrophils # 10.2 H (1.3-7.7) k/uL Lymphocytes # 0.6 L (1.0-4.8) k/uL D-Dimer 9.76 H (<0.60) mg/L FEU Sodium 133 L (137-145) mmol/L Chloride 97 L (98-107) mmol/L Glucose 101 H (74-99) mg/dL AST 39 H (14-36) U/L ALT 39 H (4-34) U/L RSV (PCR) (Not Detectd) 04/21/24 Range/Units 12:52 WBC (3.8-10.6) k/uL Neutrophils # (1.3-7.7) k/uL Lymphocytes # (1.0-4.8) k/uL D-Dimer (<0.60) mg/L FEU Sodium (137-145) mmol/L Chloride (98-107) mmol/L Glucose (74-99) mg/dL AST (14-36) U/L ALT (4-34) U/L RSV (PCR) Detected A (Not Detectd) H & H 04/21/24 Range/Units 12:52 Hgb 12.3 (11.4-16.0) gm/dL Hct 38.0 (34.0-46.0) % Coagulation 04/21/24 Range/Units 16:45 INR 1.0 (<1.2) Result Diagrams: 04/21/24 12:52 04/21/24 12:52 Assessment and Plan Assessment: Left trimalleolar ankle fracture dislocation Plan: Since the patient is nothing by mouth and her ankle is minimally swollen we discussed admitting her and performing surgery this evening rather than waiting for soft tissue swelling resolution if she discharged to follow-up in the office. She has been seen and cleared for surgery by internal medicine. I had a long discussion with the patient preoperatively in the preoperative holding area. They have a displaced ankle fracture which requires open reduction and internal fixation. We discussed the potential risks and complications of ankle fracture surgery at length. Risks discussed included but are not limited to risks from anesthesia, superficial infection, deep infection, nonunion, malunion, malreduction of the ankle mortise or syndesmosis, damage to local blood vessels or nerves particularly branches of the superficial peroneal nerve, saphenous nerve, and or sural nerve, hardware failure, loss of reduction of the ankle mortise or syndesmosis due to hardware failure, symptomatic hardware, delayed wound healing, wound necrosis, posttraumatic ankle arthritis, stiffness, instability, intra-articular pathology requiring further treatment, need for further surgery, an inability to regain preinjury level of function, dissatisfaction with surgical outcome, DVT, PE, pressure sore, splint complications, and possibly loss of life or limb. The patient understands that while these are the most common complications there are other less common complications possible. They provided their verbal and written consent to go forward with ankle open reduction and internal fixation. All of their questions regarding the procedure and potential complications were answered. Time with Patient: Greater than 30
[2024-04-21] MEDS: IV FLUID CONTINUATION 500 ML IV ONE ×2 (18:09→18:27)
[2024-04-21] MEDS: SODIUM CHLORIDE 0.9% 50 ML with ceFAZolin 2,000 MG IV ONE (18:29)
[2024-04-21] MEDS: LACTATED RINGERS 1,000 ML IV ONE (19:30)
[2024-04-21] MEDS ORDERED: HYDROmorphone 0.5 MG/0.5 ML SYRINGE IVP PRN ×3 (20:11)
[2024-04-21] MEDS ORDERED: HYDROcodone/APAP 5-325MG 1 EACH TAB PO PRN (20:11)
[2024-04-21] MEDS ORDERED: HYDROcodone/APAP 10-325MG 1 EACH TAB PO PRN (20:11)
[2024-04-21] MEDS ORDERED: ONDANSETRON 4 MG/2 ML VIAL IVP PRN (20:11)
--- NOTE | 2024-04-21 20:24 | P.OP ---
Date of Procedure: 04/21/24 Preoperative Diagnosis: 1. closed left trimalleolar ankle fracture dislocation Postoperative Diagnosis: Same Procedure(s) Performed: 1. Open reduction and internal fixation lateral and medial malleolus, non- operative management of posterior malleolus fracture 2. Manual application of joint stress by physician for radiography, left ankle 3. Application of short leg splint by physician, left ankle Anesthesia: regional, spinal Surgeon: Andreas Law Boom Boss #1: Oneil Cheema Estimated Blood Loss (ml): 25 IV fluids (ml): 500 Pathology: none sent Condition: stable Disposition: PACU Indications for Procedure: The patient patient is a very pleasant 73-year-old female who sustained a closed left ankle fracture dislocation earlier today. The patient was brought to the ER where x-rays were taken. I spoke with the ER staff who stated that the patient was relatively healthy and active at baseline. She had also been nothing by mouth for greater than 8 hours. There was minimal swelling in the ankle. I offered both to see the patient after the ER performed a reduction and splint versus having the patient admitted and performing surgery this evening before her soft tissue swelling in worsened. The family requested proceeding with surgery. She was seen and cleared for surgery by internal medicine. I met with the patient and her family to discuss treatment options. I had a long discussion with the patient prior to surgery on the potential risks and complications of ankle fracture surgery. These risks include but are not limited to risk of anesthesia, superficial infection, deep infection, delayed wound healing, superficial wound necrosis, deep wound necrosis, damage to local blood vessels or nerves, fracture nonunion, fracture malunion, postoperative displacement of the ankle mortise, postoperative displacement of the syndesmosis, malreduction of the ankle mortise, posttraumatic arthritis, chronic pain, chronic swelling, an inability to regain preinjury level of function, generalized dissatisfaction with surgical outcome, DVT, PE, other medical complications, and possibly loss of life or limb. The patient understands that while these are the most common complications there are other less common complications possible. They provided their verbal and written consent to go forward with surgery. Description of Procedure: the patient is a thin preoperative holding and the correct left leg was marked with my initials. A block was given by anesthesia. The patient was then brought back to the operating room. She was positioned on the gurney where a spinal anesthetic and preoperative antibiotics were given. The patient was then transferred onto the OR table. A tourniquet was applied the proximal aspect of the left leg. A bump was placed under the left buttock internally rotating the leg to neutral. The contralateral leg was secured to the OR table with foam and tape. A ramp was placed under the left ankle to facilitate imaging. A nonsterile drape was applied in a presurgical scrub was performed using a chlorhexidine scrub brush. Preoperative imaging with a large C-arm was taken. The left leg was then prepped and draped in the standard sterile fashion. Prior to starting surgery timeout was performed identifying the correct patient, operative extremity, and procedure. The patient's leg was then elevated, exsanguinated with an Esmarch bandage, and the tourniquet was inflated to 250 mmHg. Again by outlining a straight lateral incision to the distal fibula. Skin incision was made with a scalpel and dissection was carried down carefully to the lateral malleolus. The periosteum was elevated and the fracture was exposed. Early hematoma was removed from the fracture site. The fracture was then gently keyed into place using a dental pack and a small poslb-so-shxqe reduction clamp was used to hold the reduction. Fluoroscopy was used to verify the reduction. The patient had relatively poor bone quality but I was able to place an anterior to posterior 2.7 mm lag screw across the fracture generating excellent compression. A precontoured distal fibular locking plate was then placed over the lateral malleolus and its position was confirmed with fluoroscopy. A nonlocking 3.5 mm screw was placed proximal to the fracture. 3 locking screws were placed distally. An additional 2 nonlocking screws were placed proximally. Attention was then turned to the medial malleolus. An incision was made directly over the medial malleolus and dissection was carried down carefully to the fracture site. Patient was found to have a very small anterior medial malleolus fracture fragment. Early fracture hematoma was removed. A 2.0 mm drill bit was used to create a small unicortical perforation 1 cm proximal to the fracture. A reykw-nt-mxfez reduction clamp was then used with 1 andrew in the cortical perforation and 1 andrew at the tip of the medial malleolus. Under direct visualization the fracture fragment was carefully reduced. Due to the size of the fragment I was only able to place a single 2.7 mm nonlocking screw measuring 70 mm. At this point attention was then turned to the lateral malleolus and due to the patient's age and poor bone quality a syndesmotic screw was placed through the plate into the tibia to augment fixation. fluoroscopic images were taken. A mortise view of the ankle showed anatomic reduction of the fractures and ankle mortise. Hardware was in excellent position. A manual external rotation stress x-ray showed no widening of the medial clear space or incisura. A lateral view showed the talus well reduced under the tibial plafond and. The posterior malleolus was well reduced and very small slightly elected to treat this nonoperatively. Both wounds were then thoroughly irrigated and closed in layers. A sterile dressing was applied followed belly a well-padded bulky Rodríguez splint with the ankle at neutral. The patient was then transferred to the recovery room having tolerated the procedure well. Oneil Cheema PA-C required as a skilled market research assistant due to the complexity of surgery for patient positioning, draping, exposure, retraction, closure of wound, and application of dressing. PLAN: the patient is going to be admitted overnight for pain control and medical management. She is to be strictly nonweightbearing on her left leg with the splint on at all times. She'll receive 2 doses postoperative antibiotics. DVT prophylaxis with aspirin. Internal medicine for perioperative medical management. We'll plan on discharge home tomorrow if she is comfortable.
--- NOTE | 2024-04-21 20:37 | P.ANPRN ---
Procedure Note - Anesthesia - Nerve Block Performed Left Adductor Canal Single Time Out Performed: Yes Date of Procedure: 04/21/24 Procedure Start Time: : Procedure Stop Time: Location of Patient: Phase I Indication: Acute Post-Operative Pain, Requested by Surgeon Sedation Type: Awake Preparation: Sterile Prep Position: Supine Needle Types: Pajunk Needle Gauge: 21 Ultrasound used to visualize needle placement: Yes Ultrasound used to observe medication spread: Yes Injectate: 0.5% Ropivacaine (see comment for volume) (10 mL +10 mL of normal saline + 4 mg of dexamethasone) Blood Aspirated: No Pain Paresthesia on Injection Noted: No Resistance on Injection: Normal Image Stored and Saved: Yes Events: Uneventful and Well Tolerated
--- NOTE | 2024-04-21 20:38 | XR ---
Fluoroscopy INDICATION: Pain FINDINGS: Fluoroscopy time: 1 minute 6.3 seconds. Total dose area product (DAP) in uGy*m?, mGy*cm? (or similar): 0.2445 Images obtained: 4. Images demonstrate plate and screws fixation of medial and lateral malleolar fractures IMPRESSION: 1. Documentation of fluoroscopy. [facility], Workstation: 3, 04/21/2024 8:36 PM
--- NOTE | 2024-04-21 20:38 | P.ANPRN ---
Procedure Note - Anesthesia - Nerve Block Performed Left Popliteal Single Time Out Performed: Yes Date of Procedure: 04/21/24 Procedure Start Time: 20:25 Procedure Stop Time: 20:30 Location of Patient: Phase I Indication: Acute Post-Operative Pain, Requested by Surgeon Sedation Type: Awake Preparation: Sterile Prep Position: Supine Needle Types: Pajunk Needle Gauge: 21 Ultrasound used to visualize needle placement: Yes Ultrasound used to observe medication spread: Yes Injectate: 0.5% Ropivacaine (see comment for volume) (15 mL +10 mL of normal saline +4 mg of dexamethasone) Blood Aspirated: No Pain Paresthesia on Injection Noted: No Resistance on Injection: Normal Image Stored and Saved: Yes Events: Uneventful and Well Tolerated
--- NOTE | 2024-04-21 20:53 | FL ---
Fluoroscopy INDICATION: Pain FINDINGS: Fluoroscopy time: 1 minute 6.3 seconds. Total dose area product (DAP) in uGy*m?, mGy*cm? (or similar): 0.2445 Images obtained: 3. IMPRESSION: 1. Documentation of fluoroscopy. [facility], , 04/21/2024 8:50 PM
--- NOTE | 2024-04-21 23:20 | US ---
EXAMINATION TYPE: US venous doppler duplex LE DATE OF EXAM: 04/21/2024 11:15 PM COMPARISON: NONE CLINICAL INDICATION: Female, 73 years old with history of D-dimer elevated; Elevated D dimer, Pain TECHNIQUE: The lower extremity deep venous system is examined utilizing real time linear array sonog keagan with graded compression, color doppler sonography, and spectral doppler. SIDE PERFORMED: Bilateral FINDINGS: VESSELS IMAGED: Common Femoral Vein Deep Femoral Vein Greater Saphenous Vein * Femoral Vein Popliteal Vein Small Saphenous Vein * Proximal Calf Veins (* superficial vessels) Right Leg: Appears negative for DVT, Color Doppler imaging shows patency of the vessels. Spectral wa veforms are within normal limits. Left Leg: Appears negative for dvt , Color Doppler imaging shows patency of the vessels. Spectral wa veforms are within normal limits. IMPRESSION: No ultrasound evidence for deep venous thrombosis. [facility], , 04/21/2024 11:18 PM
[2024-04-22] MEDS: SODIUM CHLORIDE 0.9% 1,000 ML IV ONE (00:15)
[2024-04-22] MEDS: HYDROmorphone 0.5 MG/0.5 ML SYRINGE IVP PRN (02:03)
[2024-04-22] MEDS: ASPIRIN 81 MG PO SCH (08:07)
[2024-04-22] MEDS: oxyCODONE-APAP 5-325MG 1 EACH TAB PO PRN (08:07)
[2024-04-22] MEDS: ONDANSETRON 4 MG/2 ML VIAL IVP PRN (08:08)
--- NOTE | 2024-04-22 08:21 | P.PN ---
Subjective Progress Note Date: 04/22/24 No acute events overnight per patient or nursing staff. Patient is doing well this morning. Patient reports side effect to Vicodin of nausea and vomiting in the past but denies any type of allergic reaction. Discussed and will trial Percocet for pain control today. Patient's pain in their left ankle is moderate today. Objective - Vital Signs Vital signs: Vital Signs Temp 98.2 F 04/22/24 07:31 Pulse 64 04/22/24 07:31 Resp 18 04/22/24 07:31 BP 110/67 04/22/24 07:31 Pulse Ox 97 04/22/24 02:00 FiO2 Intake & Output 04/21/24 04/22/24 04/22/24 18:59 06:59 18:59 Intake Total 450 200 Output Total 25 Balance 450 175 Weight 59.1 kg 59.1 kg Intake: IV 450 200 Output: Estimated Blood Loss 25 Other: # Voids 0 1 # Bowel Movements 0 - Exam Patient was examined at bedside this morning. Patient was awake alert and able to answer questions. On exam patient was resting comfortably in chair. Patient in no acute distress. Short leg splint clean, intact over the left lower leg. Splint is left in place. All 5 toes are examined. Toes appear well-perfused. Capillary refill under 2 seconds in all 5 toes. Patient sensation grossly intact to light touch of all 5 toes. Patient able to move all 5 toes. - Labs CBC & Chem 7: 04/21/24 12:52 04/21/24 12:52 Labs: Abnormal Lab Results - Last 24 Hours (Table) 04/21/24 04/21/24 04/21/24 Range/Units 12:52 12:52 12:52 WBC 11.2 H (3.8-10.6) k/uL Neutrophils # 10.2 H (1.3-7.7) k/uL Lymphocytes # 0.6 L (1.0-4.8) k/uL D-Dimer 9.76 H (<0.60) mg/L FEU Sodium 133 L (137-145) mmol/L Chloride 97 L (98-107) mmol/L Glucose 101 H (74-99) mg/dL AST 39 H (14-36) U/L ALT 39 H (4-34) U/L RSV (PCR) (Not Detectd) 04/21/24 Range/Units 12:52 WBC (3.8-10.6) k/uL Neutrophils # (1.3-7.7) k/uL Lymphocytes # (1.0-4.8) k/uL D-Dimer (<0.60) mg/L FEU Sodium (137-145) mmol/L Chloride (98-107) mmol/L Glucose (74-99) mg/dL AST (14-36) U/L ALT (4-34) U/L RSV (PCR) Detected A (Not Detectd) Assessment and Plan Assessment: Postop day #1 status post open reduction and internal fixation lateral and medial malleolus, non-operative management of posterior malleolus fracture Left ankle pain Plan: 1. Strict nonweightbearing for 6 weeks. Use a walker or other assistive device to ambulate. 2. Leave short leg splint place. If your dressing becomes becomes loose please contact the office. 3. Keep short leg splint dry. 4. Take your blood clot prevention medication as prescribed (aspirin, Eliquis, Xarelto, and Plavix are commonly prescribed medications for blood clot prevention) 5. While taking [place] or Percocet for pain take a stool softener (Ex: Colace) and drink lots of water. 6. Keep all follow-up appointments as scheduled. You will usually be seen in 1-2 weeks following surgery. 7. Please contact the office with any questions or concerns [phone] We will trial Percocet for pain control. Will work with physical therapy. Anticipate discharge later today if pain is controlled and passes physical therapy. If not patient can stay another night. Prescription for ambulation device signed and left in chart. Dictation was produced using [employer] software, please excuse any grammatical, word or spelling errors.
--- NOTE | 2024-04-22 15:15 | P.PN ---
Subjective Progress Note Date: 04/22/24 73 year old F with PMH of hypothyroidism, hyperlipidemia presents to the ER for evaluation of left ankle fracture. Patient states that she has been eating very poorly over the last few days and not hydrating very well as a consequence of having a viral illness in which she felt like she had a head cold, congestion, cough from postnasal drip with no mucus production. As a consequence, today she felt dizzy and upon ambulating to the bathroom she had a fall in which she twisted her ankle. In the ED she underwent extensive evaluation. Vital signs showed patient was afebrile, BP 137/76, HR 67, 95% on RA. WBC is 11.2. Na 133, Cl 97. LFTs show elevation of AST/ALT to 39/39. Tested positive for RSV. Ankle x-ray shows unstable trimalleolar fracture and displacement of the medial malleoli fragment. Chest x-ray shows borderline heart size, mild hyperinflation. CT angiography showed 6 mm spiculated nodule in the right upper lobe, which requires 3-month follow-up. EKG shows normal sinus rhythm, left axis deviation, no concerning ischemic changes. Patient admitted to [facility] with [facility] on consult. Underwent ORIF lateral and medial malleolus on 04/21. 04/22 Patient was seen and examined. She reports moderate pain in her left ankle. Receiving Dilaudid and Percocet PRN for pain control. Currently on 2L NC 97%. General: non toxic, no distress, appears at stated age Derm: warm, dry Head: atraumatic, normocephalic, symmetric Eyes: EOMI, no lid lag, anicteric sclera Mouth: no lip lesion, mucus membranes moist Cardiovascular: Good distal perfusion in all 4 extremities Lungs: Breathing comfortably, no accessory muscle use Ext: no gross muscle atrophy, no edema, no contractures Psych: Alert, oriented, appropriate affect Based on my assessment of this patient, this patient meets a high complexity level of care. Hypochloremic hyponatremia: Likely due to dehydration. Continue NS at 50 cc/hr. Encourage hydration by mouth. Transaminitis: Unknown etiology. Recommend outpatient evaluation. RSV infection: Supportive management. Wean oxygen. Spiculated Nodule: Follow up in 3 months. Plan to wean O2. Family able to support at home. She is to be NWB for 6 weeks. Worried about pain control. Hopeful discharge in 1-2 days. CODE STATUS: FULL CODE DVT Prophylaxis: ASA 81 mg PO BID. GI Prophylaxis: Designated medical POA if patient is not able to make medical decisions for themselves: I have reviewed the following consultant technology notes: Orthopedic OR note. I have reviewed the results of the following tests: No new labs done today. I have ordered the following tests: I have discussed the care of this patient with the following independent historian: Family at bedside. I have independently interpreted the following test below: I have discussed the management of this patient with the following physician: Objective - Vital Signs Vital signs: Vital Signs Temp 98.3 F 04/22/24 13:57 Pulse 61 04/22/24 13:57 Resp 18 04/22/24 13:57 BP 108/62 04/22/24 13:57 Pulse Ox 93 L 04/22/24 13:57 FiO2 Intake & Output 04/21/24 04/22/24 04/22/24 18:59 06:59 18:59 Intake Total 450 200 Output Total 25 Balance 450 175 Weight 59.1 kg 59.1 kg Intake: IV 450 200 Output: Estimated Blood Loss 25 Other: # Voids 0 1 # Bowel Movements 0 - Labs CBC & Chem 7: 04/21/24 12:52 04/21/24 12:52
[2024-04-23] MEDS: ATORVASTATIN 40 MG TAB PO SCH (07:49)
--- NOTE | 2024-04-23 09:38 | P.PN ---
Subjective Progress Note Date: 04/23/24 patient is doing relatively well this morning. Per nursing she has been lightheaded when she gets up. The patient's was seen at bedside with internal medicine. The patient is complaining of moderate pain in her left ankle. She says she's been putting weight on her left ankle in the splint despite being told not to. Objective - Vital Signs Vital signs: Vital Signs Temp 99.0 F 04/23/24 07:01 Pulse 81 04/23/24 07:01 Resp 19 04/23/24 07:01 BP 138/73 04/23/24 07:01 Pulse Ox 95 04/23/24 07:01 FiO2 Intake & Output 04/22/24 04/23/24 04/23/24 18:59 06:59 18:59 Intake Total 2190 Balance 2190 Intake: Oral 2190 Other: # Voids 1 3 - Exam patient is resting comfortably in her bed. She is alert and able to answer questions. A focused exam the left lower extremity was conducted. On inspection she has a clean appearing splint. Her toes are warm and well- perfused. She can actively move her toes. - Labs CBC & Chem 7: 04/21/24 12:52 04/21/24 12:52 Assessment and Plan Assessment: postoperative day #2 status post left ankle open reduction internal fixation Plan: continue treatment as outlined yesterday. The patient was strongly encouraged to be strictly nonweightbearing on her operative extremity. Her family was the re and I reinforced this with them as well. The patient worked with physical therapy yesterday who recommended discharge to a nursing home facility or rehab. The patient does not want this and wants to go home. We'll plan on keeping the patient until tomorrow. She'll be reassessed by physical therapy to determine ultimate discharge plan. Appreciate internal medicine's assistance with perioperative medical management.
--- NOTE | 2024-04-23 10:17 | P.PN ---
Subjective Progress Note Date: 04/23/24 73 year old F with PMH of hypothyroidism, hyperlipidemia presents to the ER for evaluation of left ankle fracture. Patient states that she has been eating very poorly over the last few days and not hydrating very well as a consequence of having a viral illness in which she felt like she had a head cold, congestion, cough from postnasal drip with no mucus production. As a consequence, today she felt dizzy and upon ambulating to the bathroom she had a fall in which she twisted her ankle. In the ED she underwent extensive evaluation. Vital signs showed patient was afebrile, BP 137/76, HR 67, 95% on RA. WBC is 11.2. Na 133, Cl 97. LFTs show elevation of AST/ALT to 39/39. Tested positive for RSV. Ankle x-ray shows unstable trimalleolar fracture and displacement of the medial malleoli fragment. Chest x-ray shows borderline heart size, mild hyperinflation. CT angiography showed 6 mm spiculated nodule in the right upper lobe, which requires 3-month follow-up. EKG shows normal sinus rhythm, left axis deviation, no concerning ischemic changes. Patient admitted to Orthopedic Sx with [facility] on consult. Underwent ORIF lateral and medial malleolus on 04/21. 04/22 Patient was seen and examined. She reports moderate pain in her left ankle. Receiving Dilaudid and Percocet PRN for pain control. Currently on 2L NC 97%. 04/23 Patient was seen and examined. She reports lightheadedness when attempting to use the walker. Still feels unsteady on her feet. General: non toxic, no distress, appears at stated age Derm: warm, dry Head: atraumatic, normocephalic, symmetric Eyes: EOMI, no lid lag, anicteric sclera Mouth: no lip lesion, mucus membranes moist Cardiovascular: Normal S1 S2. No murmurs Lungs: Clear to auscultation bilaterally, no accessory muscle use Ext: no gross muscle atrophy, no edema, no contractures Psych: Alert, oriented, appropriate affect Based on my assessment of this patient, this patient meets a high complexity level of care. Lightheadedness: Likely orthostatic hypotension. Patient on Atenolol and Losartan at home which has been held since her hospitalization. Discussed with the patient and family her frequent syncopal episodes may be related to hypot ension. Plans to obtain orthostatic vitals. Hypochloremic hyponatremia: Likely due to dehydration. Encourage hydration by mouth. Transaminitis: Likely related to Lipitor use. RSV infection: Supportive management. Spiculated Nodule: Follow up in 3 months. History of hypertension: Hold Atenolol and Losartan as BP is low-normal at this time. Dyslipidemia: Lipitor 40 mg PO QD. Hypothyroidism: Synthroid 88 mcg PO QD. Discussed with Dr. Law, unsafe to discharge home today. Plans for PT/OT re- eval tomorrow. Initial evaluation recommended SNF on 04/22. CODE STATUS: FULL CODE DVT Prophylaxis: ASA 81 mg PO BID. GI Prophylaxis: Designated medical POA if patient is not able to make medical decisions for themselves: I have reviewed the following care consultant notes: Orthopedic note. I have reviewed the results of the following tests: No new labs done today. I have ordered the following tests: CBC and BMP in the AM. I have discussed the care of this patient with the following independent hi storian: Family at bedside. RN. I have independently interpreted the following test below: I have discussed the management of this patient with the following physician: Dr. Law. Objective - Vital Signs Vital signs: Vital Signs Temp 99.0 F 04/23/24 07:01 Pulse 81 04/23/24 07:01 Resp 19 04/23/24 07:01 BP 138/73 04/23/24 07:01 Pulse Ox 95 04/23/24 07:01 FiO2 Intake & Output 04/22/24 04/23/24 04/23/24 18:59 06:59 18:59 Intake Total 2190 Balance 2190 Intake: Oral 2190 Other: # Voids 1 3 - Labs CBC & Chem 7: 04/21/24 12:52 04/21/24 12:52
[2024-04-23] MEDS: LEVOTHYROXINE 88 MCG TAB PO SCH (11:08)
[2024-04-23] MEDS: BENZONATATE 100 MG CAP PO PRN (15:26)
[2024-04-23] MEDS: oxyCODONE-APAP 10-325MG 1 EACH TAB PO PRN (20:14)
[2024-04-24 05:35] LABS: HCT 34.9 % (34.0-46.0); HGB 11.5 gm/dL (11.4-16.0); MCH 31.1 pg (25.0-35.0); MCHC 32.8 g/dL (31.0-37.0); MCV 94.7 fL (80.0-100.0); Platelet Count 200 k/uL (150-450); RBC 3.69 m/uL (3.80-5.40); RDW 11.8 % (11.5-15.5); WBC 6.4 k/uL (3.8-10.6)
[2024-04-24 05:55] LABS: African American GFR (CKD) >90 (>60 ml/min/1.73 sqM); Anion Gap 3 mmol/L; Blood Urea Nitrogen 9 mg/dL (7-17); Calcium 8.4 mg/dL (8.4-10.2); Carbon Dioxide 34 mmol/L (22-30); Chloride 95 mmol/L (98-107); Glucose 100 mg/dL (74-99); Non-African American GFR(CKD) >90 (>60 ml/min/1.73 sqM); Potassium 3.8 mmol/L (3.5-5.1); Sodium 132 mmol/L (137-145)
--- NOTE | 2024-04-24 08:10 | P.PN ---
Subjective Progress Note Date: 04/24/24 04/23/2024 Patient is doing relatively well this morning. Per nursing she has been lightheaded when she gets up. The patient's was seen at bedside with internal medicine. The patient is complaining of moderate pain in her left ankle. She says she's been putting weight on her left ankle in the splint wendi pite being told not to. 04/24/2024 Progress: No acute events overnight per patient or nursing staff. Patient is doing relatively well this morning. Patient's pain in their left ankle is moderate today. Discussed with nursing team to have physical therapy reevaluate today for recommendation of home health care versus rehab. Discussed with patient at length if rehab is recommended by physical therapy we would also recommend rehab. Objective - Vital Signs Vital signs: Vital Signs Temp 98.4 F 04/24/24 07:05 Pulse 68 04/24/24 07:05 Resp 18 04/24/24 07:05 BP 106/65 04/24/24 07:05 Pulse Ox 100 04/24/24 07:05 FiO2 Intake & Output 04/23/24 04/24/24 04/24/24 18:59 06:59 18:59 Other: # Voids 4 3 - Exam Patient was examined at bedside this morning. Patient was awake alert and able to answer questions. On exam patient was resting comfortably in bed. Patient in no acute distress. Short leg splint clean, intact over the left lower leg. Splint is left in place. All 5 toes are examined. Toes appear well-perfused. Capillary refill under 2 seconds in all 5 toes. Patient sensation grossly intact to light touch of all 5 toes. Patient able to move all 5 toes. - Labs CBC & Chem 7: 04/24/24 04:07 04/24/24 04:07 Labs: Abnormal Lab Results - Last 24 Hours (Table) 04/24/24 04/24/24 Range/Units 04:07 04:07 RBC 3.69 L (3.80-5.40) m/uL Sodium 132 L (137-145) mmol/L Chloride 95 L (98-107) mmol/L Carbon Dioxide 34 H (22-30) mmol/L Creatinine 0.47 L (0.52-1.04) mg/dL Glucose 100 H (74-99) mg/dL Assessment and Plan Assessment: Postop day # 3 status post open reduction and internal fixation lateral and medial malleolus, non-operative management of posterior malleolus fracture Left ankle pain Plan: Continue treatment as outlined previously. The patient was strongly encouraged to be strictly nonweightbearing on her operative extremity. Discussed with nursing team to have physical therapy reevaluate today for recommendation of home health care versus rehab. Discussed with patient at length if rehab is recommended by physical therapy we would also recommend rehab. Appreciate internal medicine's assistance with perioperative medical management.
[2024-04-24] MEDS: SODIUM CHLORIDE 0.9% 1,000 ML IV SCH (11:30)
--- NOTE | 2024-04-24 12:37 | P.PN ---
Subjective Progress Note Date: 04/24/24 73 year old F with PMH of hypothyroidism, hyperlipidemia presents to the ER for evaluation of left ankle fracture. Patient states that she has been eating very poorly over the last few days and not hydrating very well as a consequence of having a viral illness in which she felt like she had a head cold, congestion, cough from postnasal drip with no mucus production. As a consequence, today she felt dizzy and upon ambulating to the bathroom she had a fall in which she twisted her ankle. In the ED she underwent extensive evaluation. Vital signs showed patient was afebrile, BP 137/76, HR 67, 95% on RA. WBC is 11.2. Na 133, Cl 97. LFTs show elevation of AST/ALT to 39/39. Tested positive for RSV. Ankle x-ray shows unstable trimalleolar fracture and displacement of the medial malleoli fragment. Chest x-ray shows borderline heart size, mild hyperinflation. CT angiography showed 6 mm spiculated nodule in the right upper lobe, which requires 3-month follow-up. EKG shows normal sinus rhythm, left axis deviation, no concerning ischemic changes. Patient admitted to Orthopedic Sx with [facility] on consult. Underwent ORIF lateral and medial malleolus on 04/21. 04/22 Patient was seen and examined. She reports moderate pain in her left ankle. Receiving Dilaudid and Percocet PRN for pain control. Currently on 2L NC 97%. 04/23 Patient was seen and examined. She reports lightheadedness when attempting to use the walker. Still feels unsteady on her feet. 04/24 Patient was seen and examined. Doing well no more lightheadedness. Orthostats were negative yesterday. Family still undecided about SNF. CBC and BMP significant for RBC 3.69, Na 132, Cl 95, bicarb 34, Cr 0.47, glu 100. Vital signs: BP 106/65, HR 68, T98.4F, RR 18, 100% on RA. General: non toxic, no distress, appears at stated age Derm: warm, dry Head: atraumatic, normocephalic, symmetric Eyes: EOMI, no lid lag, anicteric sclera Mouth: no lip lesion, mucus membranes moist Cardiovascular: Normal S1 S2. No murmurs Lungs: Clear to auscultation bilaterally, no accessory muscle use Ext: no gross muscle atrophy, no edema, no contractures Psych: Alert, oriented, appropriate affect Based on my assessment of this patient, this patient meets a high complexity level of care. Lightheadedness: Likely orthostatic hypotension. Patient on Atenolol and Losartan at home which has been held since her hospitalization. Discussed with the patient and family her frequent syncopal episodes may be related to hypotension. Orthostats neg. Hypochloremic hyponatremia: Likely due to dehydration. Encourage hydration by mouth. Transaminitis: Likely related to Lipitor use. RSV infection: Supportive management. Spiculated Nodule: Follow up in 3 months. History of hypertension: Hold Atenolol and Losartan as BP is low-normal at this time. Dyslipidemia: Lipitor 40 mg PO QD. Hypothyroidism: Synthroid 88 mcg PO QD. CODE STATUS: FULL CODE DVT Prophylaxis: ASA 81 mg PO BID. GI Prophylaxis: Designated medical POA if patient is not able to make medical decisions for themselves: Dispo: Discussed with case management, family to decide between home and SNF today. She is medically stable for discharge. I have reviewed the following security consultant notes: Orthopedic note. I have reviewed the results of the following tests: CBC, BMP. I have ordered the following tests: I have discussed the care of this patient with the following independent historian: Family at bedside. RN. Case management. I have independently interpreted the following test below: I have discussed the management of this patient with the following physician: Objective - Vital Signs Vital signs: Vital Signs Temp 98.4 F 04/24/24 07:05 Pulse 68 04/24/24 07:05 Resp 18 04/24/24 07:05 BP 106/65 04/24/24 07:05 Pulse Ox 100 04/24/24 07:05 FiO2 Intake & Output 04/23/24 04/24/24 04/24/24 18:59 06:59 18:59 Other: # Voids 4 3 - Labs CBC & Chem 7: 04/24/24 04:07 04/24/24 04:07 Labs: Abnormal Lab Results - Last 24 Hours (Table) 04/24/24 04/24/24 Range/Units 04:07 04:07 RBC 3.69 L (3.80-5.40) m/uL Sodium 132 L (137-145) mmol/L Chloride 95 L (98-107) mmol/L Carbon Dioxide 34 H (22-30) mmol/L Creatinine 0.47 L (0.52-1.04) mg/dL Glucose 100 H (74-99) mg/dL
--- NOTE | 2024-04-25 12:19 | P.DS ---
Providers Date of admission: 04/21/24 17:26 Attending physician: Andreas Law Consults: 04/21/24 16:28 Consult Physician Urgent Consulting Provider: Rolf Francois Consult Reason/Comments: Left ankle fracture Do you want consulting provider notified?: Yes Primary care physician: Leidy Michellearlo [facility] Course: The patient is a very pleasant 73-year-old female who presents with a left ankle fracture. According to the patient and her family at bedside she hasn't eaten much in the last several days and became lightheaded. She lost her balance and fell injuring her left ankle. She had obvious deformity and was brought to the emergency department. X-rays showed a bimalleolar ankle fracture. She was admitted under my care. At the time of evaluation she was complaining of isolated left ankle pain. She is otherwise relatively healthy and ambulates in the community at baseline. On 04/21/2024 they had Open reduction and internal fixation lateral and medial malleolus, non-operative m anagement of posterior malleolus fracture, Manual application of joint stress by physician for radiography, left ankle Application of short leg splint by physician, left ankle. They tolerated the procedure well. They were transferred to the orthopedic floor. Physical therapy recommended short term rehab and I agree this would benefit the patient. Patient was examined at bedside this morning. Patient was awake alert and able to answer questions. On exam patient was resting comfortably in bed. Patient in no acute distress. Short leg splint clean, intact over the left lower leg. Splint is left in place. All 5 toes are examined. Toes appear well-perfused. Capillary refill under 2 seconds in all 5 toes. Patient sensation grossly intact to light touch of all 5 toes. Patient able to move all 5 toes. Assessment: Postop day # 4 status post open reduction and internal fixation lateral and medial malleolus, non-operative management of posterior malleolus fracture Left ankle pain Plan - Discharge Summary Discharge Rx Participant: Yes New Discharge Prescriptions: New Sennosides-Docusate Sodium [Senokot-S] 1 tab PO BID PRN #60 tablet PRN Reason: Constipation Ondansetron [Zofran] 4 mg PO Q6HR PRN #30 tab PRN Reason: Nausea Aspirin 81 mg PO BID #60 tab Omeprazole 20 mg PO DAILY #30 tab oxyCODONE-APAP 5-325MG [Percocet 5-325 mg] 1 tab PO Q6HR PRN #28 tab PRN Reason: Pain No Action atenoloL [Tenormin] 50 mg PO DAILY Losartan [Cozaar] 25 mg PO DAILY Atorvastatin [Lipitor] 40 mg PO DAILY Levothyroxine Sodium [Synthroid] 88 mcg PO DAILY Vitamin C(Unknown Dose) 1 tab PO DAILY Ibandronate Sodium [Boniva] 150 mg PO Q30D Fish Oil(Unknown Dose) 1 cap PO DAILY Calcium(Unknown Dose) 1 tab PO DAILY Discharge Medication List atenoloL [Tenormin] 50 mg PO DAILY 11/06/16 [History] Atorvastatin [Lipitor] 40 mg PO DAILY 10/04/21 [History] Levothyroxine Sodium [Synthroid] 88 mcg PO DAILY 10/05/21 [History] Calcium(Unknown Dose) 1 tab PO DAILY 04/21/24 [History] Fish Oil(Unknown Dose) 1 cap PO DAILY 04/21/24 [History] Ibandronate Sodium [Boniva] 150 mg PO Q30D 04/21/24 [History] Losartan [Cozaar] 25 mg PO DAILY 04/21/24 [History] Vitamin C(Unknown Dose) 1 tab PO DAILY 04/21/24 [History] Aspirin 81 mg PO BID #60 tab 04/22/24 [Rx] Omeprazole 20 mg PO DAILY #30 tab 04/22/24 [Rx] Ondansetron [Zofran] 4 mg PO Q6HR PRN #30 tab 04/22/24 [Rx] Sennosides-Docusate Sodium [Senokot-S] 1 tab PO BID PRN #60 tablet 04/22/24 [Rx] oxyCODONE-APAP 5-325MG [Percocet 5-325 mg] 1 tab PO Q6HR PRN #28 tab 04/25/24 [Rx] Follow up Appointment(s)/Referral(s): Leidy Danielle DO [Primary Care Provider] - 04/29/24 10:20 am (in [place] location) Andreas Law MD [Medical Doctor] - 05/01/24 2:50 pm Activity/Diet/Wound Care/Special Instructions: 1. Strict nonweightbearing for 6 weeks. Use a walker or other assistive device to ambulate. 2. Leave short leg splint place. If your dressing becomes becomes loose please contact the office. 3. Keep short leg splint dry. 4. Take your blood clot prevention medication as prescribed (aspirin, Eliquis, Xarelto, and Plavix are commonly prescribed medications for blood clot prevention) 5. While taking [place] or Percocet for pain take a stool softener (Ex: Colace) and drink lots of water. Take omeprazole and Zofran as needed. 6. Keep all follow-up appointments as scheduled. You will usually be seen in 1-2 weeks following surgery. 7. Please contact the office with any questions or concerns [phone] Prescription for ambulation device signed and left in chart. Discharge Disposition: TRANSFER TO SNF/ECF
--- NOTE | 2024-04-25 13:53 | P.PN ---
Subjective Progress Note Date: 04/25/24 73 year old F with PMH of hypothyroidism, hyperlipidemia presents to the ER for evaluation of left ankle fracture. Patient states that she has been eating very poorly over the last few days and not hydrating very well as a consequence of having a viral illness in which she felt like she had a head cold, congestion, cough from postnasal drip with no mucus production. As a consequence, today she felt dizzy and upon ambulating to the bathroom she had a fall in which she twisted her ankle. In the ED she underwent extensive evaluation. Vital signs showed patient was afebrile, BP 137/76, HR 67, 95% on RA. WBC is 11.2. Na 133, Cl 97. LFTs show elevation of AST/ALT to 39/39. Tested positive for RSV. Ankle x-ray shows unstable trimalleolar fracture and displacement of the medial malleoli fragment. Chest x-ray shows borderline heart size, mild hyperinflation. CT angiography showed 6 mm spiculated nodule in the right upper lobe, which requires 3-month follow-up. EKG shows normal sinus rhythm, left axis deviation, no concerning ischemic changes. Patient admitted to Orthopedic Sx with [facility] on consult. Underwent ORIF lateral and medial malleolus on 04/21. 04/22 Patient was seen and examined. She reports moderate pain in her left ankle. Receiving Dilaudid and Percocet PRN for pain control. Currently on 2L NC 97%. 04/23 Patient was seen and examined. She reports lightheadedness when attempting to use the walker. Still feels unsteady on her feet. 04/24 Patient was seen and examined. Doing well no more lightheadedness. Orthostats were negative yesterday. Family still undecided about SNF. CBC and BMP significant for RBC 3.69, Na 132, Cl 95, bicarb 34, Cr 0.47, glu 100. 04/25 Patient was seen and examined. Still with cough with clear phlegm. Accepted to swing bed. Hopeful discharge today. Vital signs: BP 135/80, HR 61, T98F, RR 18, 96% on RA. General: non toxic, no distress, appears at stated age Derm: warm, dry Head: atraumatic, normocephalic, symmetric Eyes: EOMI, no lid lag, anicteric sclera Mouth: no lip lesion, mucus membranes moist Cardiovascular: Normal S1 S2. No murmurs Lungs: Clear to auscultation bilaterally, no accessory muscle use Ext: no gross muscle atrophy, no edema, no contractures Psych: Alert, oriented, appropriate affect Based on my assessment of this patient, this patient meets a high complexity level of care. Lightheadedness: Likely orthostatic hypotension. Patient on Atenolol and Losartan at home which has been held since her hospitalization. Discussed with the patient and family her frequent syncopal episodes may be related to hypot ension. Orthostats neg. Hypochloremic hyponatremia: Likely due to dehydration. Encourage hydration by mouth. Transaminitis: Likely related to Lipitor use. RSV infection: Supportive management. Spiculated Nodule: Follow up in 3 months. History of hypertension: Hold Atenolol and Losartan as BP is low-normal at this time. Dyslipidemia: Lipitor 40 mg PO QD. Hypothyroidism: Synthroid 88 mcg PO QD. CODE STATUS: FULL CODE DVT Prophylaxis: ASA 81 mg PO BID. GI Prophylaxis: Designated medical POA if patient is not able to make medical decisions for themselves: Dispo: Discussed with case management, family to decide between home and SNF today. She is medically stable for discharge. I have reviewed the following protection consultant notes: Orthopedic note. I have reviewed the results of the following tests: I have ordered the following tests: I have discussed the care of this patient with the following independent historian: Family at bedside. Case management. I have independently interpreted the following test below: I have discussed the management of this patient with the following physician: Objective - Vital Signs Vital signs: Vital Signs Temp 98.0 F 04/25/24 07:15 Pulse 61 04/25/24 07:15 Resp 18 04/25/24 07:15 BP 135/80 04/25/24 07:15 Pulse Ox 96 04/25/24 07:15 FiO2 Intake & Output 04/24/24 04/25/24 04/25/24 18:59 06:59 18:59 Other: # Voids 4 2 - Labs CBC & Chem 7: 04/24/24 04:07 04/24/24 04:07
--- NOTE | 2024-04-26 09:43 | P.PN ---
Subjective Progress Note Date: 04/26/24 patient is doing well this morning. Awaiting authorization for discharge to [facility] bed. Objective - Vital Signs Vital signs: Vital Signs Temp 98.2 F 04/26/24 07:09 Pulse 65 04/26/24 07:09 Resp 17 04/26/24 07:09 BP 130/73 04/26/24 07:09 Pulse Ox 95 04/26/24 07:09 FiO2 Intake & Output 04/25/24 04/26/24 04/26/24 18:59 06:59 18:59 Other: # Voids 4 6 - Exam patient is resting comfortably in bed. The splint on her lower extremity is intact. Her toes are warm and well perfused with brisk capillary refill. - Labs CBC & Chem 7: 04/24/24 04:07 04/24/24 04:07 Assessment and Plan Assessment: postoperative day #5 status post ankle open reduction internal fixation ankle Plan: awaiting discharge to [facility] bed. As soon as authorization comes in she is okay to discharge from orthopedic standpoint. Encouraged strict nonweightbea ring and there have been multiple reports the patient is continuing to put weight on her ankle. She understands the ramifications of doing this.
--- NOTE | 2024-04-26 12:46 | P.PN ---
Subjective Progress Note Date: 04/26/24 73 year old F with PMH of hypothyroidism, hyperlipidemia presents to the ER for evaluation of left ankle fracture. Patient states that she has been eating very poorly over the last few days and not hydrating very well as a consequence of having a viral illness in which she felt like she had a head cold, congestion, cough from postnasal drip with no mucus production. As a consequence, today she felt dizzy and upon ambulating to the bathroom she had a fall in which she twisted her ankle. In the ED she underwent extensive evaluation. Vital signs showed patient was afebrile, BP 137/76, HR 67, 95% on RA. WBC is 11.2. Na 133, Cl 97. LFTs show elevation of AST/ALT to 39/39. Tested positive for RSV. Ankle x-ray shows unstable trimalleolar fracture and displacement of the medial malleoli fragment. Chest x-ray shows borderline heart size, mild hyperinflation. CT angiography showed 6 mm spiculated nodule in the right upper lobe, which requires 3-month follow-up. EKG shows normal sinus rhythm, left axis deviation, no concerning ischemic changes. Patient admitted to Orthopedic Sx with [facility] on consult. Underwent ORIF lateral and medial malleolus on 04/21. 04/22 Patient was seen and examined. She reports moderate pain in her left ankle. Receiving Dilaudid and Percocet PRN for pain control. Currently on 2L NC 97%. 04/23 Patient was seen and examined. She reports lightheadedness when attempting to use the walker. Still feels unsteady on her feet. 04/24 Patient was seen and examined. Doing well no more lightheadedness. Orthostats were negative yesterday. Family still undecided about SNF. CBC and BMP significant for RBC 3.69, Na 132, Cl 95, bicarb 34, Cr 0.47, glu 100. 04/25 Patient was seen and examined. Still with cough with clear phlegm. Accepted to swing bed. Hopeful discharge today. 04/26 Patient was seen and examined. Accepted to swing bed insurance auth still pending. No new labs done today. Vital signs: BP 130/73, HR 65, T98.2F, RR 17, 95% on RA. General: non toxic, no distress, appears at stated age Derm: warm, dry Head: atraumatic, normocephalic, symmetric Eyes: EOMI, no lid lag, anicteric sclera Mouth: no lip lesion, mucus membranes moist Cardiovascular: Good distal perfusion in all 4 extremities Lungs: Breathing comfortably, no accessory muscle use Ext: no gross muscle atrophy, no edema, no contractures Psych: Alert, oriented, appropriate affect Based on my assessment of this patient, this patient meets a high complexity level of care. Lightheadedness: Patient on Atenolol and Losartan at home which has been held since her hospitalization. Discussed with the patient and family her frequent syncopal episodes may be related to hypotension. Orthostats neg. Hypochloremic hyponatremia: Likely due to dehydration. Encourage hydration by mouth. Transaminitis: Likely related to Lipitor use. RSV infection: Supportive management. Spiculated Nodule: Follow up in 3 months. History of hypertension: Hold Atenolol and Losartan as BP is low-normal at this time. Dyslipidemia: Lipitor 40 mg PO QD. Hypothyroidism: Synthroid 88 mcg PO QD. CODE STATUS: FULL CODE DVT Prophylaxis: ASA 81 mg PO BID. GI Prophylaxis: Designated medical POA if patient is not able to make medical decisions for themselves: Dispo: Plans for [place] swing bed pending insurance auth. She is medically stable for discharge. I have reviewed the following clinical consultant notes: Orthopedic note. I have reviewed the results of the following tests: I have ordered the following tests: I have discussed the care of this patient with the following independent historian: I have independently interpreted the following test below: I have discussed the management of this patient with the following physician: Objective - Vital Signs Vital signs: Vital Signs Temp 98.2 F 04/26/24 07:09 Pulse 65 04/26/24 07:09 Resp 17 04/26/24 07:09 BP 130/73 04/26/24 07:09 Pulse Ox 95 04/26/24 07:09 FiO2 Intake & Output 04/25/24 04/26/24 04/26/24 18:59 06:59 18:59 Other: # Voids 4 6 - Labs CBC & Chem 7: 04/24/24 04:07 04/24/24 04:07
[2024-04-26] MEDS: SENNOSIDES-DOCUSATE SODIUM 1 EACH TAB PO SCH (13:56)
--- NOTE | 2024-04-27 09:47 | P.PN ---
Subjective Progress Note Date: 04/27/24 Principal diagnosis: Left ankle fracture. Status post open reduction internal fixation left ankle. Is a 73-year-old female who is status post open reduction internal fixation of the left ankle. She has no new complaints or concerns today. She has been up with assistance. Her pain is fairly well-controlled. She continues on room air and is using her incentive spirometer. Objective - Vital Signs Vital signs: Vital Signs Temp 98.0 F 04/27/24 07:16 Pulse 62 04/27/24 07:16 Resp 17 04/27/24 07:16 BP 126/74 04/27/24 07:16 Pulse Ox 91 L 04/27/24 07:16 FiO2 Intake & Output 04/26/24 04/27/24 04/27/24 18:59 06:59 18:59 Other: Voiding Method Toilet Toilet # Voids 2 3 - Exam This is a pleasant 73-year-old female in no acute distress. She is alert and oriented x 3. Exam of the left lower extremity reveals that her splint is intact. She has full toe motion without difficulty or pain. Neurovascular status to the lower extremity is intact. - Labs CBC & Chem 7: 04/24/24 04:07 04/24/24 04:07 Assessment and Plan (1) Status post ORIF of fracture of ankle Current Visit: Yes Status: Acute Code(s): Z98.890 - OTHER SPECIFIED POSTPROCEDURAL STATES; Z87.81 - PERSONAL HISTORY OF (HEALED) TRAUMATIC FRACTURE SNOMED Code(s): 18124344367273008 (2) Closed left ankle fracture Current Visit: Yes Status: Acute Code(s): S82.892A - OTH FRACTURE OF LEFT LOWER LEG, INIT FOR CLOS FX SNOMED Code(s): 27903797 Plan: The clinical findings are discussed with the patient. We will continue to await authorization for inpatient rehab. Hopefully will be able to discharge her to rehab tomorrow.
--- NOTE | 2024-04-27 11:31 | P.PN ---
Subjective Progress Note Date: 04/27/24 73 year old F with PMH of hypothyroidism, hyperlipidemia presents to the ER for evaluation of left ankle fracture. Patient states that she has been eating very poorly over the last few days and not hydrating very well as a consequence of having a viral illness in which she felt like she had a head cold, congestion, cough from postnasal drip with no mucus production. As a consequence, today she felt dizzy and upon ambulating to the bathroom she had a fall in which she twisted her ankle. In the ED she underwent extensive evaluation. Vital signs showed patient was afebrile, BP 137/76, HR 67, 95% on RA. WBC is 11.2. Na 133, Cl 97. LFTs show elevation of AST/ALT to 39/39. Tested positive for RSV. Ankle x-ray shows unstable trimalleolar fracture and displacement of the medial malleoli fragment. Chest x-ray shows borderline heart size, mild hyperinflation. CT angiography showed 6 mm spiculated nodule in the right upper lobe, which requires 3-month follow-up. EKG shows normal sinus rhythm, left axis deviation, no concerning ischemic changes. Patient admitted to Orthopedic Sx with [facility] on consult. Underwent ORIF lateral and medial malleolus on 04/21. 04/22 Patient was seen and examined. She reports moderate pain in her left ankle. Receiving Dilaudid and Percocet PRN for pain control. Currently on 2L NC 97%. 04/23 Patient was seen and examined. She reports lightheadedness when attempting to use the walker. Still feels unsteady on her feet. 04/24 Patient was seen and examined. Doing well no more lightheadedness. Orthostats were negative yesterday. Family still undecided about SNF. CBC and BMP significant for RBC 3.69, Na 132, Cl 95, bicarb 34, Cr 0.47, glu 100. 04/25 Patient was seen and examined. Still with cough with clear phlegm. Accepted to swing bed. Hopeful discharge today. 04/26 Patient was seen and examined. Accepted to swing bed insurance auth still pending. No new labs done today. 04/27 Patient was seen and examined. Feeling nauseated after taking [place] this morning. Accepted to swing bed insurance auth still pending. No new labs done today. Vital signs: BP 126/74, HR 62, T98F, RR 17, 91% on RA. General: non toxic, no distress, appears at stated age Derm: warm, dry Head: atraumatic, normocephalic, symmetric Eyes: EOMI, no lid lag, anicteric sclera Mouth: no lip lesion, mucus membranes moist Cardiovascular: Good distal perfusion in all 4 extremities Lungs: Breathing comfortably, no accessory muscle use Ext: no gross muscle atrophy, no edema, no contractures Psych: Alert, oriented, appropriate affect Based on my assessment of this patient, this patient meets a high complexity level of care. Lightheadedness: Patient on Atenolol and Losartan at home which has been held since her hospitalization. Discussed with the patient and family her frequent syncopal episodes may be related to hypotension. Orthostats neg. Hypochloremic hyponatremia: Likely due to dehydration. Encourage hydration by mouth. Transaminitis: Likely related to Lipitor use. RSV infection: Supportive management. Spiculated Nodule: Follow up in 3 months. History of hypertension: Hold Atenolol and Losartan as BP is low-normal at this time. Dyslipidemia: Lipitor 40 mg PO QD. Hypothyroidism: Synthroid 88 mcg PO QD. CODE STATUS: FULL CODE DVT Prophylaxis: ASA 81 mg PO BID. GI Prophylaxis: Designated medical POA if patient is not able to make medical decisions for them selves: Dispo: Plans for [place] swing bed pending insurance auth. She is medically stable for discharge. I have reviewed the following image consultant notes: Orthopedic note. I have reviewed the results of the following tests: I have ordered the following tests: CBC and BMP in the AM. I have discussed the care of this patient with the following independent historian: JOHN. Family. I have independently interpreted the following test below: I have discussed the management of this patient with the following physician: Objective - Vital Signs Vital signs: Vital Signs Temp 98.0 F 04/27/24 07:16 Pulse 62 04/27/24 07:16 Resp 17 04/27/24 07:16 BP 126/74 04/27/24 07:16 Pulse Ox 91 L 04/27/24 07:16 FiO2 Intake & Output 04/26/24 04/27/24 04/27/24 18:59 06:59 18:59 Other: Voiding Method Toilet Toilet # Voids 2 3 - Labs CBC & Chem 7: 04/24/24 04:07 04/24/24 04:07
[2024-04-27] MEDS: polyethylene glycoL 3350 17 GM POWD.PACK PO STA (13:37)
[2024-04-27] MEDS: ONDANSETRON 4 MG/2 ML VIAL IVP PRN (18:53)
[2024-04-28 04:44] LABS: HCT 34.6 % (34.0-46.0); HGB 11.5 gm/dL (11.4-16.0); MCH 30.7 pg (25.0-35.0); MCHC 33.4 g/dL (31.0-37.0); MCV 92.1 fL (80.0-100.0); Mean Platelet Volume 7.1; Platelet Count 326 k/uL (150-450); RBC 3.75 m/uL (3.80-5.40); RDW 12.1 % (11.5-15.5); WBC 8.8 k/uL (3.8-10.6)
[2024-04-28 05:09] LABS: African American GFR (CKD) >90 (>60 ml/min/1.73 sqM); Anion Gap 6 mmol/L; Blood Urea Nitrogen 12 mg/dL (7-17); Calcium 9.2 mg/dL (8.4-10.2); Carbon Dioxide 33 mmol/L (22-30); Chloride 95 mmol/L (98-107); Glucose 104 mg/dL (74-99); Non-African American GFR(CKD) >90 (>60 ml/min/1.73 sqM); Potassium 4.3 mmol/L (3.5-5.1); Sodium 134 mmol/L (137-145)
--- NOTE | 2024-04-28 08:06 | P.PN ---
Subjective Progress Note Date: 04/28/24 04/23/2024 Patient is doing relatively well this morning. Per nursing she has been lightheaded when she gets up. The patient's was seen at bedside with internal medicine. The patient is complaining of moderate pain in her left ankle. She says she's been putting weight on her left ankle in the splint wendi pite being told not to. 04/28/2024 Progress: No acute events overnight per patient or nursing staff. Patient is doing relatively well this morning. Patient's pain in their left ankle is moderate today. Patient has had nausea with percocet, will trial [place]. Discussed with nursing team to have physical therapy reevaluate today for recommendation of home health care versus rehab. Discussed with patient at length if rehab is recommended by physical therapy we would also recommend rehab. Objective - Vital Signs Vital signs: Vital Signs Temp 98.7 F 04/28/24 01:38 Pulse 68 04/28/24 01:38 Resp 17 04/28/24 01:38 BP 137/70 04/28/24 01:38 Pulse Ox 91 L 04/28/24 01:38 FiO2 Intake & Output 04/27/24 04/28/24 04/28/24 18:59 06:59 18:59 Other: Voiding Method Toilet # Voids 4 2 - Exam Patient was examined at bedside this morning. Patient was awake alert and able to answer questions. On exam patient was resting comfortably in bed. Patient in no acute distress. Short leg splint clean, intact over the left lower leg. Splint is left in place. All 5 toes are examined. Toes appear well-perfused. Capillary refill under 2 seconds in all 5 toes. Patient sensation grossly intact to light touch of all 5 toes. Patient able to move all 5 toes. - Labs CBC & Chem 7: 04/28/24 04:31 04/28/24 04:31 Labs: Abnormal Lab Results - Last 24 Hours (Table) 04/28/24 04/28/24 Range/Units 04:31 04:31 RBC 3.75 L (3.80-5.40) m/uL Sodium 134 L (137-145) mmol/L Chloride 95 L (98-107) mmol/L Carbon Dioxide 33 H (22-30) mmol/L Glucose 104 H (74-99) mg/dL Assessment and Plan Assessment: Postop day #7 status post open reduction and internal fixation lateral and medial malleolus, non-operative management of posterior malleolus fracture Left ankle pain Plan: Continue treatment as outlined previously. The patient was strongly encouraged to be strictly nonweightbearing on her operative extremity. Discussed with nursing team to have physical therapy reevaluate today for recommendation of home health care versus rehab. Discussed with patient at length if rehab is recommended by physical therapy we would also recommend rehab. Appreciate internal medicine's assistance with perioperative medical management.
[2024-04-28 08:51] VITALS: BP 123/71; PULSE 62; RESP 15; TEMP 98
[2024-04-28] MEDS: HYDROcodone/APAP 10-325MG 1 EACH TAB PO PRN (11:25)
--- NOTE | 2024-04-28 11:54 | P.DS ---
Providers Date of admission: 04/21/24 17:26 Attending physician: Andreas Law Consults: 04/21/24 16:28 Consult Physician Urgent Consulting Provider: Rolf Francois Consult Reason/Comments: Left ankle fracture Do you want consulting provider notified?: Yes Primary care physician: Leidy Danielle [facility] Course: The patient is a very pleasant 73-year-old female who presented with a left ankle fracture. According to the patient and her family at bedside she hasn't eaten much in the last several days and became lightheaded. She lost her balance and fell injuring her left ankle. She had obvious deformity and was brought to the emergency department. X-rays showed a bimalleolar ankle fracture. She was admitted under orthopedic care. At the time of evaluation she was complaining of isolated left ankle pain. She is otherwise relatively healthy and ambulates in the community at baseline. On 04/21/2024 they had Open reduction and internal fixation lateral and medial malleolus, non-operative management of posterior malleolus fracture, Manual application of joint stress by physician for radiography, left ankle, and Application of short leg splint by physician, left ankle. They tolerated the procedure well. They were transferred to the orthopedic floor. Physical theray worked with the patient several times. Today 04/28/2024 patient was evaluated by physical therapy and it was determined the patient was safe to go home with home care at discharge. Patient is to remain non weight bearing of the left lower extremity for 6 weeks and the patient verbalized understanding of this this morning. Patient was examined at bedside this morning. Patient was awake alert and able to answer questions. On exam patient was resting comfortably in bed. Patient in no acute distress. Short leg splint clean, intact over the left lower leg. Splint is left in place. All 5 toes are examined. Toes appear well-perfused. Capillary refill under 2 seconds in all 5 toes. Patient sensation grossly intact to light touch of all 5 toes. Patient able to move all 5 toes. Assessment: Postop day # 7 status post open reduction and internal fixation lateral and m edial malleolus, non-operative management of posterior malleolus fracture Left ankle pain Plan - Discharge Summary Discharge Rx Participant: Yes New Discharge Prescriptions: New Sennosides-Docusate Sodium [Senokot-S] 1 tab PO BID PRN #60 tablet PRN Reason: Constipation Ondansetron [Zofran] 4 mg PO Q6HR PRN #30 tab PRN Reason: Nausea HYDROcodone/APAP 10-325MG [Dietrich 10] 1 each PO Q6H PRN #28 tab PRN Reason: Pain Aspirin 81 mg PO BID #60 tab Omeprazole 20 mg PO DAILY #30 tab Benzonatate [Tessalon Perles] 200 mg PO TID PRN cap PRN Reason: Cough Continue Atorvastatin [Lipitor] 40 mg PO DAILY Levothyroxine Sodium [Synthroid] 88 mcg PO DAILY Vitamin C(Unknown Dose) 1 tab PO DAILY Ibandronate Sodium [Boniva] 150 mg PO Q30D Fish Oil(Unknown Dose) 1 cap PO DAILY Calcium(Unknown Dose) 1 tab PO DAILY Discontinued atenoloL [Tenormin] 50 mg PO DAILY Losartan [Cozaar] 25 mg PO DAILY Discharge Medication List Atorvastatin [Lipitor] 40 mg PO DAILY 10/04/21 [History] Levothyroxine Sodium [Synthroid] 88 mcg PO DAILY 10/05/21 [History] Calcium(Unknown Dose) 1 tab PO DAILY 04/21/24 [History] Fish Oil(Unknown Dose) 1 cap PO DAILY 04/21/24 [History] Ibandronate Sodium [Boniva] 150 mg PO Q30D 04/21/24 [History] Vitamin C(Unknown Dose) 1 tab PO DAILY 04/21/24 [History] Aspirin 81 mg PO BID #60 tab 04/22/24 [Rx] Omeprazole 20 mg PO DAILY #30 tab 04/22/24 [Rx] Ondansetron [Zofran] 4 mg PO Q6HR PRN #30 tab 04/22/24 [Rx] Sennosides-Docusate Sodium [Senokot-S] 1 tab PO BID PRN #60 tablet 04/22/24 [Rx] Benzonatate [Tessalon Perles] 200 mg PO TID PRN cap 04/25/24 [Rx] HYDROcodone/APAP 10-325MG [Dietrich 10] 1 each PO Q6H PRN #28 tab 04/28/24 [Rx] Follow up Appointment(s)/Referral(s): Leidy Danielle DO [Primary Care Provider] - 04/29/24 10:20 am (in [place] location) [facility], [NON-STAFF] - 1-2 Days Andreas Law MD [Medical Doctor] - 05/01/24 2:50 pm Patient Instructions/Handouts: Ankle Fracture (DC) Activity/Diet/Wound Care/Special Instructions: 1. Strict nonweightbearing for 6 weeks. Use a walker or other assistive device to ambulate. 2. Leave short leg splint place. If your dressing becomes becomes loose please contact the office. 3. Keep short leg splint dry. 4. Take your blood clot prevention medication as prescribed (aspirin, Eliquis, Xarelto, and Plavix are commonly prescribed medications for blood clot prevention) 5. While taking Dietrich or Percocet for pain take a stool softener (Ex: Colace) and drink lots of water. Take omeprazole and Zofran as needed. 6. Keep all follow-up appointments as scheduled. You will usually be seen in 1-2 weeks following surgery. 7. Please contact the office with any questions or concerns [phone] Prescription for ambulation device signed and left in chart. Follow up with your PCP within regard to routine surveillance of spiculated lung nodule. Discharge Disposition: HOME WITH HOME HEALTH SERVICES
--- NOTE | 2024-04-28 13:20 | P.PN ---
Subjective Progress Note Date: 04/28/24 73 year old F with PMH of hypothyroidism, hyperlipidemia presents to the ER for evaluation of left ankle fracture. Patient states that she has been eating very poorly over the last few days and not hydrating very well as a consequence of having a viral illness in which she felt like she had a head cold, congestion, cough from postnasal drip with no mucus production. As a consequence, today she felt dizzy and upon ambulating to the bathroom she had a fall in which she twisted her ankle. In the ED she underwent extensive evaluation. Vital signs showed patient was afebrile, BP 137/76, HR 67, 95% on RA. WBC is 11.2. Na 133, Cl 97. LFTs show elevation of AST/ALT to 39/39. Tested positive for RSV. Ankle x-ray shows unstable trimalleolar fracture and displacement of the medial malleoli fragment. Chest x-ray shows borderline heart size, mild hyperinflation. CT angiography showed 6 mm spiculated nodule in the right upper lobe, which requires 3-month follow-up. EKG shows normal sinus rhythm, left axis deviation, no concerning ischemic changes. Patient admitted to Orthopedic Sx with [facility] on consult. Underwent ORIF lateral and medial malleolus on 04/21. 04/22 Patient was seen and examined. She reports moderate pain in her left ankle. Receiving Dilaudid and Percocet PRN for pain control. Currently on 2L NC 97%. 04/23 Patient was seen and examined. She reports lightheadedness when attempting to use the walker. Still feels unsteady on her feet. 04/24 Patient was seen and examined. Doing well no more lightheadedness. Orthostats were negative yesterday. Family still undecided about SNF. CBC and BMP significant for RBC 3.69, Na 132, Cl 95, bicarb 34, Cr 0.47, glu 100. 04/25 Patient was seen and examined. Still with cough with clear phlegm. Accepted to swing bed. Hopeful discharge today. 04/26 Patient was seen and examined. Accepted to swing bed insurance auth still pending. No new labs done today. 04/27 Patient was seen and examined. Feeling nauseated after taking [place] this morning. Accepted to swing bed insurance auth still pending. No new labs done today. 04/28 Patient was seen and examined. Feeling well. Planning on going home. CBC and BMP significant for RBC 3.75, Na 134, Cl 95, bicarb 33, glu 104. Vital signs: BP 123/71, HR 62, T98F, RR 15, 91% on RA. General: non toxic, no distress, appears at stated age Derm: warm, dry Head: atraumatic, normocephalic, symmetric Eyes: EOMI, no lid lag, anicteric sclera Mouth: no lip lesion, mucus membranes moist Cardiovascular: Good distal perfusion in all 4 extremities Lungs: Breathing comfortably, no accessory muscle use Ext: no gross muscle atrophy, no edema, no contractures Psych: Alert, oriented, appropriate affect Based on my assessment of this patient, this patient meets a high complexity level of care. Lightheadedness: Patient on Atenolol and Losartan at home which has been held since her hospitalization. Discussed with the patient and family her frequent syncopal episodes may be related to hypotension. Orthostats neg. Hypochloremic hyponatremia: Likely due to dehydration. Encourage hydration by mouth. Transaminitis: Likely related to Lipitor use. RSV infection: Supportive management. Spiculated Nodule: Follow up in 3 months. History of hypertension: Hold Atenolol and Losartan as BP is low-normal at this time. Dyslipidemia: Lipitor 40 mg PO QD. Hypothyroidism: Synthroid 88 mcg PO QD. CODE STATUS: FULL CODE DVT Prophylaxis: ASA 81 mg PO BID. GI Prophylaxis: Designated medical POA if patient is not able to make medical decisions for themselves: Dispo: Plans for discharge Home today. I have reviewed the following community health consultant notes: Orthopedic note. I have reviewed the results of the following tests: CBC and BMP I have ordered the following tests: I have discussed the care of this patient with the following independent historian: JOHN. Family. I have independently interpreted the following test below: I have discussed the management of this patient with the following physician: Objective - Vital Signs Vital signs: Vital Signs Temp 98.0 F 04/28/24 06:39 Pulse 62 04/28/24 06:39 Resp 15 04/28/24 06:39 BP 123/71 04/28/24 06:39 Pulse Ox 91 L 04/28/24 06:39 FiO2 Intake & Output 04/27/24 04/28/24 04/28/24 18:59 06:59 18:59 Other: Voiding Method Toilet # Voids 4 2 - Labs CBC & Chem 7: 04/28/24 04:31 04/28/24 04:31 Labs: Abnormal Lab Results - Last 24 Hours (Table) 04/28/24 04/28/24 Range/Units 04:31 04:31 RBC 3.75 L (3.80-5.40) m/uL Sodium 134 L (137-145) mmol/L Chloride 95 L (98-107) mmol/L Carbon Dioxide 33 H (22-30) mmol/L Glucose 104 H (74-99) mg/dL
[2024-04-28 13:40] VITALS: BMI 19.8
== END 2024-04-28 14:01 | disposition home health service (06) | DRG 493 ==
LOC: EC 11:45 → 4SSUR 17:26
PROVIDERS: ADMIT Orthopaedic Surgery; ATTEND Orthopaedic Surgery
PROC: 0QSHXZZ Reposition Left Tibia, External Approach (ICD-10-PCS; 2024-04-21)
PROC: 3E0T3BZ Introduction of Anesthetic Agent into Peripheral Nerves and Plexi, Percutaneous Approach (ICD-10-PCS; 2024-04-21)
PROC: 3E0T33Z Introduction of Anti-inflammatory into Peripheral Nerves and Plexi, Percutaneous Approach (ICD-10-PCS; 2024-04-21)
PROC: 0QSH04Z Reposition Left Tibia with Internal Fixation Device, Open Approach (ICD-10-PCS; principal; 2024-04-21 11:00)
DX: S82.852A Displaced trimalleolar fracture of left lower leg, initial encounter for closed fracture (principal); E87.1 Hypo-osmolality and hyponatremia; I10 Essential (primary) hypertension; E78.5 Hyperlipidemia, unspecified; B97.4 Respiratory syncytial virus as the cause of diseases classified elsewhere; E03.9 Hypothyroidism, unspecified; E86.0 Dehydration; E87.8 Other disorders of electrolyte and fluid balance, not elsewhere classified; I95.1 Orthostatic hypotension; R74.01 Elevation of levels of liver transaminase levels; W01.0XXA Fall on same level from slipping, tripping and stumbling without subsequent striking against object, initial encounter; Z79.890 Hormone replacement therapy; Z79.899 Other long term (current) drug therapy; Z88.5 Allergy status to narcotic agent; Z90.710 Acquired absence of both cervix and uterus
CPT/HCPCS: 29515; 36415; 64445; 64447; 71046; 71275; 80048; 80053; 83605; 84484; 85025; 85027; 85379; 85610; 85730; 87636; 93005; 93970; 96361; 96374; 99285